=== PATIENT | female | born 1980 | race Caucasian/White ===

== ENCOUNTER 2020-04-23 10:54 | Outpatient (REF) | payer BC, SELFPAY ==
[2020-04-23 11:45] LABS: Hematocrit 42.5 % (37-47); Mean Corpuscular HGB Conc 32.9 g/dl (31.0-35.0); Mean Corpuscular Hemoglobin 27.2 pg (27.0-33.0); Mean Corpuscular Volume 82.7 fL (80-98); Mean Platelet Volume 9.9 fL (9.4-12.3); Platelet Count 235 X10*3/uL (160-400); Red Blood Count 5.14 X10*6/uL (4.20-5.50); Red Cell Distribution Width 13.2 % (11.0-16.0); White Blood Count 9.7 X10*3/uL (4.8-10.8)
[2020-04-23 12:18] LABS: Estimated Average Glucose 105 mg/dL; Hemoglobin A1c % 5.3 %
[2020-04-23 12:25] LABS: Alanine Aminotransferase 15 U/L (0-31); Albumin Level 4.5 g/dL (3.5-5.0); Alkaline Phosphatase 104 U/L (39-117); Anion Gap 11 (12-20); Aspartate Amino Transferase 16 U/L (5-31); Bilirubin Total 0.6 mg/dL (0.0-1.0); Blood Urea Nitrogen 11 mg/dL (9-16); Calcium 8.8 mg/dL (8.4-10.2); Carbon Dioxide 26 mmol/L (22-29); Chloride 105 mmol/L (96-108); Cholesterol 167 mg/dL; Estimated Glomerular Filt Rate > 60; Glucose Fasting 96 mg/dL (60-99); HDL Cholesterol 29 mg/dL; LDL Cholesterol Calculated 93 mg/dl; Potassium 4.2 mmol/L (3.3-5.1); Sodium 138 mmol/L (135-145); Total Protein 7.6 g/dL (6.5-8.0); Triglycerides 226 mg/dL
[2020-04-23 12:30] LABS: TSH reflex Free T4 0.61 uIU/mL (0.32-4.0)
== END 2020-04-23 10:55 | disposition home or self-care (01) ==
LOC: HO.LAB 10:54
PROVIDERS: PCP Physician Assistant; Visit Provider Physician Assistant
DX: I10 Essential (primary) hypertension (principal); Z86.32 Personal history of gestational diabetes; Z13.1 Encounter for screening for diabetes mellitus; Z13.220 Encounter for screening for lipoid disorders; Z13.29 Encounter for screening for other suspected endocrine disorder
CPT/HCPCS: 36415; 80053; 80061; 83036; 84443; 85027

== ENCOUNTER 2020-10-08 09:44 | Outpatient (REF) | payer BC, SELFPAY ==
--- NOTE | ~2020-10-08 | MM_ITS ---
EXAMINATION: MM SCREENING DIGITAL BREAST TOMOSYNTHESIS, BILATERAL CLINICAL INFORMATION: Screening. Asymptomatic. Age 40. No prior breast imaging. Family history breast cancer, maternal grandmother. The lifetime risk of breast cancer based on the Tyrer-Cuzick Model is 21%. COMPARISON: None (current study represents initial baseline exam). TECHNIQUE: Digital breast tomosynthesis is performed in both the craniocaudal and mediolateral oblique views along with computer-aided detection (CAD). Synthesized 2D images are generated from the tomosynthesis. Additional left CC and right MLO views are provided. FINDINGS: There are scattered areas of fibroglandular density (ACR BI-RADS breast composition Category b). There are no significant masses, abnormal calcifications, or other abnormalities. There is incidental intramammary node mid outer left breast and also mid outer right breast on the CC views. The axilla and skin contours are unremarkable. MM/MM tomosynthesis screening BI IMPRESSION: No mammographic evidence of malignancy. ASSESSMENT: BI-RADS 2: Benign RECOMMENDATION: 1. Routine annual mammography screening. 2. The lifetime risk of breast cancer based on the Tyrer-Cuzick Model is 21%. Additional annual adjunct screening with breast MRI may be of benefit in women with a risk score of 20% or greater. This patient's information was entered into a reminder system with a target due date for their next mammogram.
[2020-10-08 12:24] LABS: Anion Gap 13 (12-20); Blood Urea Nitrogen 11 mg/dL (9-16); Calcium 9.4 mg/dL (8.4-10.2); Carbon Dioxide 24 mmol/L (22-29); Chloride 106 mmol/L (96-108); Estimated Glomerular Filt Rate > 60; Glucose Random 95 mg/dL (60-115); Potassium 4.7 mmol/L (3.3-5.1); Rheumatoid Factor < 15.0 IU/mL (<15.0); Sodium 138 mmol/L (135-145)
[2020-10-08 12:42] LABS: Erythrocyte Sedimentation Rate 6 MM/HR (0-20)
[2020-10-10 23:26] LABS: Anti Nuclear Antibody Screen POSITIVE (NEGATIVE)
[2020-10-11 22:11] LABS: Cyclic Citrullinated Peptide <16 UNITS
== END 2020-10-08 09:45 | disposition home or self-care (01) ==
LOC: HO.MAMMO 09:44
PROVIDERS: PCP Physician Assistant; Visit Provider Physician Assistant
DX: Z12.31 Encounter for screening mammogram for malignant neoplasm of breast (principal); I10 Essential (primary) hypertension; M79.641 Pain in right hand; M79.642 Pain in left hand
CPT/HCPCS: 36415; 77063; 77067; 80048; 85652; 86038; 86039; 86200; 86431

== ENCOUNTER 2021-01-29 15:54 | Emergency (ER) | payer BC, SELFPAY ==
--- NOTE | ~2021-01-29 | XR_ITS ---
EXAMINATION: XR CHEST CLINICAL INFORMATION: Cough COMPARISON: None TECHNIQUE: Frontal view of the chest was obtained. FINDINGS: The lungs are clear. The costophrenic sulci are well-defined. The heart is normal in size. Vascularity normal. The hilar and mediastinal contours and visualized bony structures are unremarkable. XR/XR chest 1V IMPRESSION: Unremarkable examination.
[2021-01-29 16:04] VITALS: BP 130/84; PULSE 97; RESP 16; TEMP 36.8; BMI 36.8
[2021-01-29 16:34] LABS: COVID-19 Test Negative (Negative)
--- NOTE | 2021-01-29 17:27 | ED_ITS ---
HPI - URI/Sore Throat General Chief Complaint: Upper Respiratory Symptoms Stated Complaint: cough and watery eye [id number] Time Seen by Provider: 01/29/21 17:27 Source: patient Mode of arrival: ambulatory History of Present Illness HPI Narrative: 40-year-old female with no significant past medical history presenting to the ED complaining of dry cough x3 weeks. Denies fever, chills, ear pain, sore throat, CP, SOB, LE edema, calf pain, recent travel, sick contacts MD elicited complaint: cough Related Data Previous Rx's Medication Instructions Recorded lisinopril 5 mg tablet 5 mg PO DAILY #30 tab 12/16/20 albuterol sulfate 90 mcg/actuation 2 puff INHALATION Q6H PRN #8.5 g 01/28/21 aerosol inhaler naproxen 500 mg tablet 500 mg PO BID PRN 14 Days #28 tab 01/28/21 azithromycin 250 mg tablet See Rx Instructions .ROUTE 01/29/21 .COMPLEX #6 tab benzonatate 200 mg capsule 200 mg PO TID PRN #20 cap 01/29/21 fluticasone propionate 50 2 spray INTRANASAL DAILY #16 g 01/29/21 mcg/actuation nasal spray,suspension (Flonase Allergy Relief) Allergies Allergy/AdvReac Type Severity Reaction Status Date / Time walnut AdvReac swollen Verified 10/02/20 10:59 throat Review of Systems Review of Systems: Constitutional: No Fever, No Chills ENT/Mouth: No Ear Pain, No Nasal Congestion, No sore throat, No Rhinorrhea, No Swallowing Difficulty Cardiovascular: No Chest Pain, No SOB Respiratory: + Cough, No Sputum, No Wheezing Gastrointestinal: No Nausea, No Vomiting, No Diarrhea, No Constipation, No Abdominal pain Genitourinary: No Dysuria, No Urgency, No Flank Pain Musculoskeletal: No joint pain, No Myalgias, No Joint Swelling Skin: No Skin Lesions, No rash Neuro: No Weakness, No Numbness, No Paresthesias Yes all other systems are reviewed and are negative [facility] Past Medical History Attestation statement: The following information was validated with the patient. 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 [employer] Current occupational exposures/hazards: No Physical Exam Vital Signs: Vital Signs: Last Vital Signs Temp 98.2 F 01/29/21 16:04 Pulse 97 01/29/21 16:04 Resp 16 01/29/21 16:04 BP 130/84 01/29/21 16:04 Body Mass Index 36.8 Const: General: cooperative, healthy appearing and no acute distress Orientation/consciousness: patient oriented x3 Limitations: no limitations HENMT: Head: Yes normal to inspection Ears: hearing grossly normal bilaterally, external ears normal, TM's normal bilaterally and mastoids normal General nose exam: Normal external nose present Face and sinus: Yes normal facial exam Mouth: Normal oral and palatal mucosa present Throat: Yes posterior oropharynx normal, Yes tonsils normal, Yes uvula midline, No uvula laterally displaced and No uvular edema Eyes: General: appearance normal, both eyes and all related structures EOM: EOMs intact bilaterally Neck: Neck: Yes normal visual inspection and Yes no meningeal signs Resp: Effort & Inspection: normal respiratory effort Auscultation: clear to auscultation bilaterally, no rales, no rhonchi and no wheezes Cardio: Rate: regular rate Heart sounds: S1 normal heart sound present and S2 normal heart sound present GI: Inspection: Yes normal to inspection Palpation (GI): Soft to palpation, nontender, no guarding and not rigid Skin: Rashes: no rashes Wounds: no wounds Neuro: General: patient oriented x3 and no meningeal signs Gait exam (Neuro): Normal gait present Extrem: General: Yes normal to inspection, Yes no pedal edema and Yes no calf tenderness Course Course Course Narrative: XR chest 1V IMPRESSION: Unremarkable examination. ? -COVID-19 negative MDM - URI/Sore Throat MDM Narrative Medical decision making narrative: 40-year-old female with no significant past medical history presenting to the ED complaining of dry cough x3 weeks. On exam vital signs stable, NAD, well-appearing, lungs CTA, oropharynx/TMs WNL. Concern for viral syndromes COVID-19 versus bronchitis. Rule out pneumonia. Plan: CXR, COVID-19 testing Medical Records Attestation: I reviewed the patient's medical records. Lab Data Attestation: I reviewed the patient's lab results. Labs: Lab Results 01/29/21 Range/Units 16:10 COVID-19 (YAJAIRA) Negative (Negative) COVID-19 Clin Com See Note Discharge Plan Discharge Clinical Impression: Bronchitis Patient Disposition: Home, Self-Care Instructions: Acute Bronchitis (ED) Additional Instructions: you tested negative for COVID-19 Your x-ray was unremarkable You likely have bronchitis, azithromycin as antibiotic, take as prescribed Tessalon Perles for cough Flonase as a nasal decongestant, please follow up with her doctor If her symptom persist or worsen, you have constant or worsening cough/shortness breath, chest pain, or fever unresolved medications please return to the ED Prescriptions: New azithromycin 250 mg tablet See Rx Instructions .ROUTE .COMPLEX Qty: 6 RF: 0 benzonatate 200 mg capsule 200 mg PO TID PRN (Reason: cough) Qty: 20 RF: 0 fluticasone propionate [Flonase Allergy Relief] 50 mcg/actuation spray,suspension 2 spray intranasal DAILY Qty: 16 RF: 0 No Action lisinopril 5 mg tablet 5 mg PO DAILY Qty: 30 RF: 3 albuterol sulfate 90 mcg/actuation HFA aerosol inhaler 2 puff inhalation Q6H PRN (Reason: shortness of breath or wheezing) Qty: 8.5 RF: 1 naproxen 500 mg tablet 500 mg PO BID PRN (Reason: pain) 14 Days Qty: 28 RF: 0 Referrals: Physician,Unknown J [Primary Care Provider] - 2 days
== END 2021-01-29 17:50 | disposition home or self-care (01) ==
PROVIDERS: Emergency Provider Emergency Medicine
DX: J40 Bronchitis, not specified as acute or chronic (principal); Z20.822 Contact with and (suspected) exposure to COVID-19
CPT/HCPCS: 36415; 71045; 87635; 99283

== ENCOUNTER 2021-03-24 13:17 | Outpatient (REF) | payer BC, SELFPAY ==
[2021-03-24 15:21] LABS: Binax Internal Control QC Valid; Binax Now Covid-19 Ag Negative (Negative)
== END 2021-03-24 13:18 | disposition home or self-care (01) ==
LOC: HO.LAB 13:17
PROVIDERS: Visit Provider Internal Medicine
DX: Z20.822 Contact with and (suspected) exposure to COVID-19 (principal)
CPT/HCPCS: 36415; C9803

== ENCOUNTER 2021-07-02 09:23 | Outpatient (REF) | payer OTHER, MEDICAID, SELFPAY ==
[2021-07-05 07:26] LABS: HPV mRNA E6/E7 Not Detected (Not Detected)
== END 2021-07-02 09:24 | disposition home or self-care (01) ==
LOC: HO.LAB 09:23
PROVIDERS: PCP Physician Assistant; Visit Provider Obstetrics & Gynecology
DX: Z01.411 Encounter for gynecological examination (general) (routine) with abnormal findings (principal); Z11.51 Encounter for screening for human papillomavirus (HPV); N94.9 Unspecified condition associated with female genital organs and menstrual cycle
CPT/HCPCS: 87624; 88142

== ENCOUNTER 2021-07-29 10:54 | Outpatient (REF) | payer OTHER, MEDICAID, SELFPAY ==
--- NOTE | ~2021-07-29 | US_ITS ---
EXAMINATION: US PELVIS CLINICAL INFORMATION: Adnexal fullness COMPARISON: None TECHNIQUE: Ultrasound of the pelvis is performed using both transabdominal and transvaginal transducers along with Doppler. Transvaginal imaging is performed due to inadequate visualization transabdominally. FINDINGS: Uterus: The uterus is anteverted and measures 10.8 x 4.6 x 5.2 cm. The double wall endometrial thickness is 6 mm. The uterus is smooth in contour and has normal myometrial echogenicity. No visible fibroid. Cervix unremarkable. Adnexa: Both ovaries are visualized. There is normal color flow to the adnexa. There is no ovarian torsion. There is no pelvic ascites or fluid collection. Right ovary measures 3.3 x 2.0 x 1.3 cm. 4.5 mL volume Left ovary measures 3.7 x 2.1 x 2.4 cm. 9.8 mL volume US/US pelvic and transvaginal IMPRESSION: Normal pelvic ultrasound study.
== END 2021-07-29 10:55 | disposition home or self-care (01) ==
LOC: HO.US 10:54
PROVIDERS: Visit Provider Obstetrics & Gynecology
CPT/HCPCS: 76830; 76856

== ENCOUNTER → 2021-08-12 11:25 | Outpatient (BNVA) | payer OTHER, MEDICAID, SELFPAY | PROVIDERS: Visit Provider Obstetrics & Gynecology | DX: Z13.89 Encounter for screening for other disorder (principal) ==

== ENCOUNTER 2021-08-13 22:06 | Emergency (ER) | payer OTHER, SELFPAY ==
--- NOTE | ~2021-08-13 | XR_ITS ---
EXAMINATION: XR CHEST CLINICAL INFORMATION: Shortness of breath COMPARISON: 01/29/2021 TECHNIQUE: Frontal view of the chest was obtained. FINDINGS: The lungs are mildly hypoinflated. There is heterogeneous opacity towards the left lung base. No right lung consolidation is seen. No evidence of pneumothorax, pleural effusion, or pulmonary edema. The cardiomediastinal contour is unremarkable. No acute osseous findings are seen. XR/XR chest 1V IMPRESSION: Heterogeneous left basilar airspace opacity suspicious for pneumonia. Radiographic followup after treatment/resolution of symptoms is recommended.
--- NOTE | 2021-08-13 22:08 | ECG_ITS ---
Test Reason : SHORTNESS OF BREATH Blood Pressure : / mmHG Vent. Rate : 113 BPM Atrial Rate : 113 BPM P-R Int : 144 ms QRS Dur : 074 ms QT Int : 330 ms P-R-T Axes : 070 000 045 degrees QTc Int : 452 ms Sinus tachycardia Otherwise normal ECG No previous ECGs available Referred By: Generic ED Physician Electronically Signed By:RACHID DUPREE MD
[2021-08-13 22:12] VITALS: BP 149/94; PULSE 116; RESP 20; TEMP 36.6; O2SAT 97; BMI 37.8
[2021-08-13 22:48] VITALS: BP 152/93; PULSE 113; RESP 15; O2SAT 98
[2021-08-13 22:54] LABS: MANUAL DIFF FLAG NO
[2021-08-13 22:55] LABS: Basophils Percent Auto 0.1 % (0-2); Eosinophils Absolute Auto 0.1 X10*3/uL (0.0-0.4); Eosinophils Percent Auto 1.4 % (0-4); Hematocrit 38.4 % (37.0-47.0); Imm Gran Abs Auto 0.02 X10*3/uL (0.00-0.03); Imm Gran Pct Auto 0.3 % (0.0-0.4); Lymphocytes Percent Auto 25.9 % (20-40); Mean Corpuscular HGB Conc 33.9 g/dl (31.0-35.0); Mean Corpuscular Hemoglobin 27.4 pg (27.0-33.0); Mean Platelet Volume 9.7 fL (9.4-12.3); Monocytes Absolute Auto 0.5 X10*3/uL (0.1-1.2); Monocytes Percent Auto 6.2 % (2-11); Neutrophils Absolute Auto 5.1 x10*3/uL (2.0-8.3); Neutrophils Percent Auto 66.1 % (45-73); Platelet Count 194 X10*3/uL (160-400); Red Blood Count 4.74 X10*6/uL (4.20-5.50); Red Cell Distribution Width 13.2 % (11.0-16.0); White Blood Count 7.8 X10*3/uL (4.8-10.8)
--- NOTE | 2021-08-13 23:09 | ED_ITS ---
HPI - General Adult General Chief complaint: Dyspnea Stated complaint: sob, left side lung pain,cough Time Seen by Provider: 08/13/21 23:07 Source: patient and family Mode of arrival: ambulatory Limitations: no limitations History of Present Illness HPI narrative: 40-year-old female came in for evaluation of cough and chest tightness with left-sided chest pain. Symptoms started 3 days ago, reportedly patient's child is sick with croup, patient has been having runny nose and nasal congestion, been coughing non productive cough, pain on the left side of the chest worsening with movement and coughing, improve with sitting still. No fever, no chills. No recent travel, no lower extremity swelling or tenderness, no history of PE or DVT. No no chest wall trauma or injury. Related Data Home Medications Medication Instructions Recorded Confirmed ergocalciferol (vitamin D2) 1,250 1,250 mcg PO QWEEK 07/02/21 mcg (50,000 unit) capsule Previous Rx's Medication Instructions Recorded naproxen 500 mg tablet 500 mg PO BID PRN 14 Days #28 tab 01/28/21 fluticasone propionate 50 2 spray INTRANASAL DAILY #16 g 01/29/21 mcg/actuation nasal spray,suspension (Flonase Allergy Relief) losartan 25 mg tablet 25 mg PO DAILY 30 Days #30 tab 03/20/21 albuterol sulfate 90 mcg/actuation 2 puff INHALATION Q6H PRN #8.5 g 08/01/21 aerosol inhaler albuterol sulfate 90 mcg/actuation 1 inh INHALATION QID PRN #6.7 g 08/14/21 aerosol inhaler azithromycin 250 mg tablet See Rx Instructions .ROUTE 08/14/21 (Zithromax Z-Ernesto) .COMPLEX #6 tab prednisone 20 mg tablet 20 mg PO BID #10 tab 08/14/21 Allergies Allergy/AdvReac Type Severity Reaction Status Date / Time walnut AdvReac swollen Verified 07/02/21 09:50 throat Review of Systems Review of Systems: All other systems are reviewed and are negative Constitutional: Reports as per HPI and Reports no additional constitutional complaints Eyes: Reports as per HPI and Reports no additional eye complaints Reports system reviewed and no additional complaints, except as documented Cardiovascular: Reports as per HPI and Reports no additional cardiovascular complaints Respiratory: Reports as per HPI and Reports no additional respiratory complaints Gastrointestinal: Reports as per HPI and Reports no additional gastrointestinal complaints Genitourinary: Reports no additional female genitourinary complaints Musculoskeletal: Reports no additional musculoskeletal complaints Skin/Breast: Reports system reviewed and no additional complaints, except as docu Psychiatric: Reports no additional psychiatric complaints Endocrine: Reports no additional endocrine complaints Hematologic/Lymphatic: Reports no additional hematologic/lymphatic complaints Allergic/Immunologic: Reports no additional allergic/immunologic complaints Reports system reviewed and no additional complaints, except as documented and Reports Abnormal speech present [facility] Past Medical History Medical History delivery delivered Hypertension Surgical History Hx of section Hx of tubal ligation Family History Family History Father Diabetes Alzheimers disease Mother Arthritis High blood pressure Vertigo Tubular adenoma of colon Paternal Grandmother History of breast cancer Maternal Grandmother History of breast cancer Social History Social History Housing: Apartment Alcohol intake: former Patient Tobacco Use Status: Former Tobacco user e-Cigarette/Vaping Use: Former Use Second Hand Smoke Exposure: No Advance Directives: No Advance Directives Information Provided: No Patient : No service: No Current occupational status: employed 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 Blood pressure normal. Heart rate elevated. Respiration rate normal. Temperature normal. O xygen saturation normal. Appearance: Alert. Oriented X3. No acute distress. Head: Normal external exam. Normocephalic. Atraumatic. No Gunter signs noted. No raccoon eyes noted Eyes: PERRLA. EOMI. Conjunctiva and sclera normal. Eyelids normal. ENT: TM's Normal. Pharynx normal. Uvula midline. Moist mucous membranes. No trismus noted. No drooling noted. No muffled voice noted. Neck: Normal inspection. Neck supple. FROM. No adenopathy. Thyroid Normal. No meningeal signs. No neck mass noted. CVS: Normal heart rate and rhythm. Heart sound normal. No murmurs noted. Pulses normal throughout. Respiratory: No respiratory distress. Painless inspiration. Breath sounds normal. Bilateral mild expiratory wheezing, prolonged expiration, reproducible tenderness on the left chest wall in mid axillary line, no step-off, no deformity, no muscle usage noted or decreased air movement noted. Abdomen: Soft and nontender. Bowel sounds normal in all 4 quadrants. No distention noted. No organomegaly noted. No visible injury noted. Back: No CVA tenderness. Full range of motion noted. Skin: Skin warm and dry. Normal skin color. Normal skin turgor. No rashes/lesions/lacerations noted. Extremities: No lower extremity edema. Extremities exhibit normal range of motion. Extremities nontender. Neuro: Oriented X 3. Cranial nerve exam: II-XII are grossly intact No motor deficit. No sensory deficit. Reflexes normal. Course Course Course Narrative: Assessment and plan. 40 years old female came in with cough and chest wall reproducible pain, no rib fracture, labs are unremarkable, HEART score is 0, low risk for PE with negative D-dimer. Exam is consistent with acute left lower lobe pneumonia will start patient on Z-Ernesto/prednisone/bronchodilator. Medical Decision Making Lab Data Lab results reviewed: Yes I reviewed the patient's lab results. Result diagrams: 08/13/21 22:38 08/13/21 22:38 Labs: Lab Results 08/13/21 08/13/21 08/13/21 Range/Units 22:38 22:38 22:38 WBC 7.8 (4.8-10.8) X10*3/uL RBC 4.74 (4.20-5.50) X10*6/uL Hgb 13.0 (12.0-16.0) g/dl Hct 38.4 (37.0-47.0) % MCV 81.0 (80.0-98.0) fL MCH 27.4 (27.0-33.0) pg MCHC 33.9 (31.0-35.0) g/dl RDW 13.2 (11.0-16.0) % Plt Count 194 (160-400) X10*3/uL MPV 9.7 (9.4-12.3) fL Immature Gran % (Auto) 0.3 (0.0-0.4) % Neut % (Auto) 66.1 (45-73) % Lymph % (Auto) 25.9 (20-40) % [place] % (Auto) 6.2 (2-11) % Eos % (Auto) 1.4 (0-4) % Baso % (Auto) 0.1 (0-2) % Lymph # (Auto) 2.0 (1.2-4.9) X10*3/uL [place] # (Auto) 0.5 (0.1-1.2) X10*3/uL Eos # (Auto) 0.1 (0.0-0.4) X10*3/uL Baso # (Auto) 0.0 (0.0-0.2) X10*3/uL Abs Immat Gran (auto) 0.02 (0.00-0.03) X10*3/uL Absolute Neuts (auto) 5.1 (2.0-8.3) x10*3/uL Absolute Nucleated RBC 0.000 (0.0-0.012) X10*3/uL Nucleated RBC % (auto) 0.0 (0.0-0.2) /100WBC D-Dimer High Sensitivty NG/ML Sodium 135 (135-145) mmol/L Potassium 4.1 (3.3-5.1) mmol/L Chloride 106 (96-108) mmol/L Carbon Dioxide 21 L (22-29) mmol/L Anion Gap 12 (12-20) BUN 11 (9-16) mg/dL Creatinine 0.79 (0.5-1.4) mg/dL Estim Creat Clear Calc 97.1 Estimated GFR > 60 Random Glucose 100 (60-115) mg/dL Calcium 8.8 D (8.4-10.2) mg/dL Total Bilirubin 0.3 (0.0-1.0) mg/dL AST 19 (5-31) U/L ALT 22 (0-31) U/L Alkaline Phosphatase 99 (39-117) U/L Troponin I High Sens < 3.5 (<3.5-17.0) ng/L Total Protein 7.0 (6.5-8.0) g/dL Albumin 3.9 (3.5-5.0) g/dL Influenza Type A (PCR) (Negative) Influenza Type B (PCR) (Negative) RSV RNA Qual (PCR) (Negative) SARS-CoV-2 RNA (RT-PCR) (Negative) 08/13/21 08/13/21 Range/Units 22:38 23:33 WBC (4.8-10.8) X10*3/uL RBC (4.20-5.50) X10*6/uL Hgb (12.0-16.0) g/dl Hct (37.0-47.0) % MCV (80.0-98.0) fL MCH (27.0-33.0) pg MCHC (31.0-35.0) g/dl RDW (11.0-16.0) % Plt Count (160-400) X10*3/uL MPV (9.4-12.3) fL Immature Gran % (Auto) (0.0-0.4) % Neut % (Auto) (45-73) % Lymph % (Auto) (20-40) % [place] % (Auto) (2-11) % Eos % (Auto) (0-4) % Baso % (Auto) (0-2) % Lymph # (Auto) (1.2-4.9) X10*3/uL [place] # (Auto) (0.1-1.2) X10*3/uL Eos # (Auto) (0.0-0.4) X10*3/uL Baso # (Auto) (0.0-0.2) X10*3/uL Abs Immat Gran (auto) (0.00-0.03) X10*3/uL Absolute Neuts (auto) (2.0-8.3) x10*3/uL Absolute Nucleated RBC (0.0-0.012) X10*3/uL Nucleated RBC % (auto) (0.0-0.2) /100WBC D-Dimer High Sensitivty 178 NG/ML Sodium (135-145) mmol/L Potassium (3.3-5.1) mmol/L Chloride (96-108) mmol/L Carbon Dioxide (22-29) mmol/L Anion Gap (12-20) BUN (9-16) mg/dL Creatinine (0.5-1.4) mg/dL Estim Creat Clear Calc Estimated GFR Random Glucose (60-115) mg/dL Calcium (8.4-10.2) mg/dL Total Bilirubin (0.0-1.0) mg/dL AST (5-31) U/L ALT (0-31) U/L Alkaline Phosphatase (39-117) U/L Troponin I High Sens (<3.5-17.0) ng/L Total Protein (6.5-8.0) g/dL Albumin (3.5-5.0) g/dL Influenza Type A (PCR) NEGATIVE (Negative) Influenza Type B (PCR) NEGATIVE (Negative) RSV RNA Qual (PCR) NEGATIVE (Negative) SARS-CoV-2 RNA (RT-PCR) NEGATIVE (Negative) Imaging Data Chest x-ray: Attestation: I personally reviewed and interpreted this imaging study as follows: Radiologist's impression: Heterogeneous left basilar airspace opacity suspicious for pneumonia. Radiographic followup after treatment/resolution of symptoms is recommended. ? ECG Data Attestation: I personally reviewed and interpreted this ECG as follows: Interpretation: Sinus tachycardia at 113 beats per minute, normal intervals, no ST-T changes. Discharge Plan Discharge Clinical Impression: Bronchitis, Chest wall pain, Pneumonia Patient Disposition: Home, Self-Care Instructions: Pneumonia (ED) Prescriptions: New prednisone 20 mg tablet 20 mg PO BID Qty: 10 0RF azithromycin [Zithromax Z-Ernesto] 250 mg tablet See Rx Instructions .ROUTE .COMPLEX Qty: 6 0RF Rx Instructions: For 250 mg dose pack: take 500 mg today (day 1), then 250 mg for 4 days (days 2-5) albuterol sulfate 90 mcg/actuation HFA aerosol inhaler 1 inh inhalation QID PRN (Reason: shortness of breath or wheezing) Qty: 6.7 0RF No Action naproxen 500 mg tablet 500 mg PO BID PRN (Reason: pain) 14 Days Qty: 28 0RF losartan 25 mg tablet 25 mg PO DAILY 30 Days Qty: 30 3RF albuterol sulfate 90 mcg/actuation HFA aerosol inhaler 2 puff inhalation Q6H PRN (Reason: shortness of breath or wheezing) Qty: 8.5 1RF fluticasone propionate [Flonase Allergy Relief] 50 mcg/actuation spray,suspension 2 spray intranasal DAILY Qty: 16 0RF Rx Instructions: administer into each nostril ergocalciferol (vitamin D2) 1,250 mcg (50,000 unit) capsule 1,250 mcg PO QWEEK 0RF Referrals: Cheo Patterson PA-C [Primary Care Provider] -
[2021-08-13 23:12] LABS: Alanine Aminotransferase 22 U/L (0-31); Albumin Level 3.9 g/dL (3.5-5.0); Alkaline Phosphatase 99 U/L (39-117); Anion Gap 12 (12-20); Aspartate Amino Transferase 19 U/L (5-31); Bilirubin Total 0.3 mg/dL (0.0-1.0); Blood Urea Nitrogen 11 mg/dL (9-16); Calcium 8.8 mg/dL (8.4-10.2); Carbon Dioxide 21 mmol/L (22-29); Chloride 106 mmol/L (96-108); Creatinine Clr Calc Pharmacy 97.1; Estimated Glomerular Filt Rate > 60; Glucose Random 100 mg/dL (60-115); Potassium 4.1 mmol/L (3.3-5.1); Sodium 135 mmol/L (135-145)
[2021-08-13 23:17] LABS: Troponin-I High Sensitivity < 3.5 ng/L (<3.5-17.0)
[2021-08-13] MEDS: Albuterol/Iprat 2.5/0.5MG 3 ML AMPUL.NEB INHALE (23:21)
[2021-08-13] MEDS: predniSONE 20 MG TABLET 60 MG PO (23:25)
[2021-08-13 23:31] LABS: Influenza A PCR NEGATIVE (Negative); Influenza B PCR NEGATIVE (Negative); Resp Syncy Virus RNA Qual PCR NEGATIVE (Negative); SARS COV2 PCR INHOUSE NEGATIVE (Negative)
[2021-08-13 23:32] VITALS: PULSE 107; RESP 16; O2SAT 97
[2021-08-13 23:47] LABS: D Dimer High Sensitivity 178 NG/ML
== END 2021-08-14 01:42 | disposition home or self-care (01) ==
PROVIDERS: Emergency Provider Emergency Medicine; PCP Physician Assistant
DX: J18.9 Pneumonia, unspecified organism (principal); J40 Bronchitis, not specified as acute or chronic; R07.89 Other chest pain; I10 Essential (primary) hypertension; Z20.822 Contact with and (suspected) exposure to COVID-19
CPT/HCPCS: 0241U; 36415; 71045; 80053; 84484; 85025; 85379; 93005; 94640; 99284

== ENCOUNTER 2021-08-26 08:43 | Outpatient (REF) | payer OTHER, SELFPAY ==
[2021-08-26 09:28] LABS: Hematocrit 40.7 % (37.0-47.0); Hemoglobin 13.4 g/dl (12.0-16.0); Mean Corpuscular HGB Conc 32.9 g/dl (31.0-35.0); Mean Corpuscular Hemoglobin 27.3 pg (27.0-33.0); Mean Corpuscular Volume 82.9 fL (80.0-98.0); Mean Platelet Volume 9.5 fL (9.4-12.3); Platelet Count 233 X10*3/uL (160-400); Red Blood Count 4.91 X10*6/uL (4.20-5.50); Red Cell Distribution Width 13.2 % (11.0-16.0); White Blood Count 8.6 X10*3/uL (4.8-10.8)
[2021-08-26 09:48] LABS: Alanine Aminotransferase 21 U/L (0-31); Alkaline Phosphatase 88 U/L (39-117); Anion Gap 11 (12-20); Aspartate Amino Transferase 15 U/L (5-31); Blood Urea Nitrogen 14 mg/dL (9-16); Calcium 8.9 mg/dL (8.4-10.2); Carbon Dioxide 24 mmol/L (22-29); Chloride 105 mmol/L (96-108); Cholesterol 171 mg/dL; Estimated Glomerular Filt Rate > 60; Glucose Fasting 111 mg/dL (60-99); HDL Cholesterol 25 mg/dL; LDL Cholesterol Calculated 75 mg/dl; Potassium 4.4 mmol/L (3.3-5.1); Sodium 136 mmol/L (135-145); Total Protein 6.7 g/dL (6.5-8.0); Triglycerides 357 mg/dL
[2021-08-26 09:49] LABS: Estimated Average Glucose 108 mg/dL; Hemoglobin A1c % 5.4 %
[2021-08-26 10:18] LABS: TSH reflex Free T4 0.56 uIU/mL (0.32-4.0)
[2021-08-26 11:30] LABS: Microalbum/Creatinine Ratio Ur 4.1 ug/mg cr
== END 2021-08-26 08:44 | disposition home or self-care (01) ==
LOC: HO.LAB 08:43
PROVIDERS: PCP Physician Assistant; Visit Provider Physician Assistant
DX: I10 Essential (primary) hypertension (principal)
CPT/HCPCS: 36415; 80053; 80061; 82043; 83036; 84443; 85027

== ENCOUNTER 2021-10-10 11:13 | Outpatient (REF) | payer OTHER, SELFPAY ==
--- NOTE | ~2021-10-10 | MM_ITS ---
EXAMINATION: MM SCREENING DIGITAL BREAST TOMOSYNTHESIS, BILATERAL CLINICAL INFORMATION: Screening. Asymptomatic. The lifetime risk of breast cancer based on the Tyrer-Cuzick Model is 21%. COMPARISON: Mammography: 10/08/2020 (baseline) TECHNIQUE: Digital breast tomosynthesis is performed in both the craniocaudal and mediolateral oblique views along with computer-aided detection (CAD). Synthesized 2D images are generated from the tomosynthesis. Additional bilateral MLO views are provided. FINDINGS: There are scattered areas of fibroglandular density (ACR BI-RADS breast composition Category b). There are no significant masses, abnormal calcifications, or other abnormalities. Incidental intramammary nodes again seen bilateral posterior upper outer quadrant. There is no developing density or architectural abnormality. No significant changes from baseline exam. MM/MM tomosynthesis screening BI IMPRESSION: No mammographic evidence of malignancy. ASSESSMENT: BI-RADS 2: Benign RECOMMENDATION: Routine annual mammography screening. This patient's information was entered into a reminder system with a target due date for their next mammogram.
== END 2021-10-10 11:14 | disposition home or self-care (01) ==
LOC: HO.MAMMO 11:13
PROVIDERS: PCP Physician Assistant; Visit Provider Physician Assistant
DX: Z12.31 Encounter for screening mammogram for malignant neoplasm of breast (principal)
CPT/HCPCS: 77063; 77067

== ENCOUNTER 2022-03-27 07:59 | Outpatient (REF) | payer OTHER, SELFPAY ==
--- NOTE | ~2022-03-27 | US_ITS ---
EXAMINATION: US ABDOMEN LIMITED CLINICAL INFORMATION: Right upper quadrant abdominal pain. COMPARISON: None TECHNIQUE: Real-time imaging of the right upper quadrant abdominal viscera. FINDINGS: PANCREAS: Normal. LIVER: Increased echogenicity of the liver parenchyma which is also slightly heterogeneous. The liver is normal in size. The liver contour is normal. No focal hepatic lesion. There is no intrahepatic biliary duct dilatation seen. GALLBLADDER: Negative Rosas's sign. The gallbladder is physiologically distended. Multiple gallbladder calculi some of which are nonmobile and impacted in the neck. No evidence of gallbladder wall thickening or pericholecystic fluid. COMMON BILE DUCT: Normal in caliber measuring 0.5 cm in diameter. RIGHT KIDNEY: Normal. No hydronephrosis. No renal calculi or focal parenchymal lesions. The kidney measures 10.8 cm in maximum dimension. FREE FLUID: None. US/US abdomen limited IMPRESSION: 1. Cholelithiasis, some stones are nonmobile bowel within the neck. There is no significant gallbladder wall thickening or pericholecystic free fluid to suspect acute cholecystitis. Negative Rosas's sign. 2. Increased echogenicity and heterogeneity of the liver parenchyma is nonspecific and could be seen in the setting of hepatocellular disease, hepatic steatosis or cirrhosis.
== END 2022-03-27 08:00 | disposition home or self-care (01) ==
LOC: HO.US 07:59
PROVIDERS: PCP Physician Assistant; Visit Provider Physician Assistant
DX: R10.11 Right upper quadrant pain (principal)
CPT/HCPCS: 76705

== ENCOUNTER 2022-03-31 15:51 | Outpatient (REF) | payer OTHER, SELFPAY | END 2022-03-31 15:52 | disposition home or self-care (01) | LOC: HO.SH 15:51 | PROVIDERS: Visit Provider Physician Assistant | DX: Z01.118 Encounter for examination of ears and hearing with other abnormal findings (principal); H93.293 Other abnormal auditory perceptions, bilateral | CPT/HCPCS: 92557; 92567 ==

== ENCOUNTER 2022-05-27 09:52 | Outpatient (REF) | payer OTHER, SELFPAY ==
[2022-05-27 11:34] LABS: Prothrombin Time 11.5 SEC (10.0-13.1)
[2022-05-27 11:47] LABS: Estimated Average Glucose 111 mg/dL; Hemoglobin A1c % 5.5 %
[2022-05-27 11:56] LABS: Hematocrit 41.7 % (37.0-47.0); Hemoglobin 13.9 g/dl (12.0-16.0); Mean Corpuscular HGB Conc 33.3 g/dl (31.0-35.0); Mean Corpuscular Hemoglobin 27.5 pg (27.0-33.0); Mean Corpuscular Volume 82.4 fL (80.0-98.0); Platelet Count 268 X10*3/uL (160-400); Red Blood Count 5.06 X10*6/uL (4.20-5.50); White Blood Count 7.9 X10*3/uL (4.8-10.8)
[2022-05-27 12:22] LABS: Hepatitis A Antibody IgG Nonreactive (Nonreactive); ~Hepatitis A Antibody IgG 0.35 S/CO (0.00-0.99)
[2022-05-27 12:23] LABS: HBS Num1 0.85 mIU/mL (0-7.99); HBc Num1 0.07 S/CO (0.00-0.79); HBsAGNum1 0.31 S/CO (0.00-0.99); HIV AB/AG Nonreactive (Nonreactive); HIV Num 1 0.05 S/CO (0.00-0.99); Hepatitis B Core Antibody Nonreactive (Nonreactive); Hepatitis B Surface Antigen Negative (Negative); ~Hepatitis B Surface Antibody NONREACTIVE (Nonreactive)
[2022-05-27 12:25] LABS: ~HepC Num1 0.09 S/CO (0.00-0.79); ~Hepatitis C Antibody Nonreactive (Nonreactive)
[2022-05-27 12:30] LABS: Alanine Aminotransferase 24 U/L (0-31); Albumin Level 4.1 g/dL (3.5-5.0); Alkaline Phosphatase 97 U/L (39-117); Anion Gap 14 (12-20); Aspartate Amino Transferase 17 U/L (5-31); Bilirubin Total 0.8 mg/dL (0.0-1.0); Blood Urea Nitrogen 10 mg/dL (9-16); Calcium 9.1 mg/dL (8.4-10.2); Carbon Dioxide 25 mmol/L (22-29); Chloride 106 mmol/L (96-108); Cholesterol 171 mg/dL; Estimated Glomerular Filt Rate > 60; Glucose Random 113 mg/dL (60-115); HDL Cholesterol 25 mg/dL; LDL Cholesterol Calculated 99 mg/dl; Sodium 141 mmol/L (135-145); TSH reflex Free T4 0.74 uIU/mL (0.32-4.0); Total Protein 7.1 g/dL (6.5-8.0); Triglycerides 238 mg/dL
[2022-05-27 12:43] LABS: Creatinine Urine 148.34 mg/dL; Microalbum/Creatinine Ratio Ur 239.3 ug/mg cr
== END 2022-05-27 09:53 | disposition home or self-care (01) ==
LOC: HO.LAB 09:52
PROVIDERS: PCP Physician Assistant; Referring Provider Physician Assistant; Visit Provider Internal Medicine
DX: Z11.4 Encounter for screening for human immunodeficiency virus [HIV] (principal); I10 Essential (primary) hypertension; K74.60 Unspecified cirrhosis of liver; K76.0 Fatty (change of) liver, not elsewhere classified; K80.20 Calculus of gallbladder without cholecystitis without obstruction; K59.09 Other constipation
CPT/HCPCS: 36415; 80053; 80061; 82043; 83036; 84443; 85027; 85610; 86704; 86706; 86708; 86803; 87340; 87389; 99202

== ENCOUNTER → 2022-07-06 09:30 | Outpatient (BNVA) | payer OTHER, SELFPAY | PROVIDERS: PCP Physician Assistant; Visit Provider Obstetrics & Gynecology ==

== ENCOUNTER → 2022-07-28 08:48 | Outpatient (BNVA) | payer OTHER, SELFPAY | PROVIDERS: PCP Physician Assistant; Referring Provider Obstetrics & Gynecology; Visit Provider Surgery | DX: Z91.89 Other specified personal risk factors, not elsewhere classified (principal); Z80.3 Family history of malignant neoplasm of breast | CPT/HCPCS: 99202 ==

== ENCOUNTER 2022-08-03 08:50 | Emergency (ER) | payer OTHER, SELFPAY ==
--- NOTE | ~2022-08-03 | XR_ITS ---
EXAMINATION: XR CHEST CLINICAL INFORMATION: Pain and cough COMPARISON: None available. TECHNIQUE: Frontal view of the chest was obtained. FINDINGS: No significant abnormality is noted involving the heart, lungs, mediastinum, bony thorax or soft tissues. XR/XR chest 1V IMPRESSION: Unremarkable chest examination.
[2022-08-03 09:11] VITALS: BP 154/98; PULSE 83; RESP 18; TEMP 36.8; O2SAT 99; BMI 35.3
--- NOTE | 2022-08-03 09:43 | ED_ITS ---
HPI - General Adult General Chief complaint: General Medical Stated complaint: r sided back pain Time Seen by Provider: 08/03/22 09:43 Source: patient Mode of arrival: ambulatory Limitations: no limitations History of Present Illness HPI narrative: Patient is a 41 year old assigned female at with a history of HTN presenting to the emergency department today with a persistent cough and right sided rib pain. Patient states that over the last 2 weeks she has had a persistent cough and now coughing hurts her right rib cage towards the back. Patient states that the last time this happened, she had pneumonia. Patient denies any dizziness, lightheadedness, abdominal pain, nausea, vomiting, fever, chills, blurry vision, double vision, loss of vision, chest pain, difficulty breathing, shortness of breath, back pain, night sweats, pain with urination, increased urinary frequency, increased urinary urgency, blood in her urine or stool, syncope or a near syncopal episode, recent trauma or falls, bowel inconti nence, bladder incontinence, bowel retention, bladder retention, or any other complaints at this time. Onset (ago): week(s) (2) Severity: mild Severity scale (1-10): 2 Quality: dull Pain Consistency: intermittent Relieving factors: none Exacerbating factors: none Associated symptoms: cough Treatments prior to arrival: none Related Data Home Medications Medication Instructions Recorded Confirmed ergocalciferol (vitamin D2) 1,250 1,250 mcg PO QWEEK 07/02/21 07/28/22 mcg (50,000 unit) capsule sennosides 8.6 mg capsule (senna) 17.2 mg PO BEDTIME 05/27/22 07/28/22 Previous Rx's Medication Instructions Recorded naproxen 500 mg tablet 500 mg PO BID PRN pain 14 days #28 02/16/22 tabs albuterol sulfate 90 mcg/actuation 1 inh inhalation QID PRN shortness 02/17/22 aerosol inhaler (Ventolin HFA) of breath or wheezing 30 days #8.5 grams losartan 25 mg tablet 25 mg PO DAILY 90 days #90 tabs 02/22/22 ursodiol 300 mg capsule 300 mg PO DAILY 30 days #30 caps 05/04/22 polyethylene glycol 3350 17 17 g PO DAILY constipation 30 days 05/27/22 gram/dose oral powder (Miralax) #510 grams ipratropium bromide 42 mcg (0.06 2 spray intranasal BID 30 days #15 06/20/22 %) nasal spray mL albuterol sulfate 90 mcg/actuation 1 inh inhalation QID PRN shortness 08/03/22 aerosol inhaler of breath or wheezing #8.5 grams doxycycline hyclate 100 mg tablet 100 mg PO BID 7 days #14 tabs 08/03/22 Allergies Allergy/AdvReac Type Severity Reaction Status Date / Time walnut AdvReac swollen Verified 07/28/22 08:51 throat Review of Systems Constitutional: Constitutional: Reports no additional constitutional complaints, Denies chills, Denies fever(s) and Denies night sweats Eyes: Eyes: Reports no additional eye complaints, Denies blurry vision, Denies change in vision, Denies diplopia, Denies eye discharge, Denies loss of vision and Denies eye pain ENT: Denies dizziness Cardiovascular: Cardiovascular: Reports no additional cardiovascular complaints, Denies chest pain, Denies lightheadedness, Denies Loss of Consciousness and Denies dyspnea Respiratory: Respiratory: Reports no additional respiratory complaints, Reports cough and Denies dyspnea Gastrointestinal: Gastrointestinal: Reports no additional gastrointestinal complaints, Denies abdominal pain, Denies melena, Denies hematochezia, Denies change in bowel habits and Denies change in stool character Genitourinary: Genitourinary: Denies hematuria, Denies urinary frequency, Denies dysuria, Denies urinary incontinence, Denies urinary hesitancy and Denies urinary urgency Musculoskeletal: Musculoskeletal: Reports no additional musculoskeletal complaints, Denies numbness and Denies tingling Comments: right sided rib pain Neurologic: Denies dizziness, Denies loss of vision, Denies numbness and Denies tingling Psychiatric: Psychiatric: Reports no additional psychiatric complaints Endocrine: Endocrine: Reports no additional endocrine complaints Hematologic/Lymphatic: Hematologic/Lymphatic: Reports no additional hematologic/lymphatic complaints Allergic/Immunologic: Allergic/Immunologic: Reports no additional allergic/immunologic complaints PMFSH Past Medical History Attestation statement: The following information was validated with the patient. Source: old records reviewed and nursing notes reviewed Medical History delivery delivered Hypertension Surgical History Hx of section Hx of tubal ligation Family History Family History Father Diabetes Alzheimers disease Mother Arthritis High blood pressure Vertigo Tubular adenoma of colon Paternal Grandmother History of breast cancer Maternal Grandmother History of breast cancer Social History Social History Housing: Apartment Alcohol intake: former Patient Tobacco Use Status: Former Tobacco user e-Cigarette/Vaping Use: Former Use Second Hand Smoke Exposure: No Advance Directives: No Advance Directives Information Provided: Yes service: No Current occupational status: unemployed Current occupation: stay at home Current occupational exposures/hazards: No Sexual orientation: Straight/Heterosexual Gender identity: Female Cognitive needs: No Hearing needs: No Vision needs: Yes Physical Exam ED Vital Signs: Vital Signs - 24 hr 08/03/22 09:11 Temperature 98.2 F Pulse Rate 83 Respiratory Rate 18 Blood Pressure 154/98 H Pulse Oximetry 99 Oxygen Delivery Method Room Air BMI result Body Mass Index 35.3 Const General: cooperative, no acute distress, alert and awake Nutritional Appearance: well nourished Orientation/consciousness: patient oriented x3 Limitations: no limitations HENMT Head: Yes normal to inspection and Yes atraumatic Ears: hearing grossly normal bilaterally and external ears normal General nose exam: Normal external nose present, no nasal discharge noted and no epistaxis Face and sinus: Yes normal facial exam, No abrasion and No laceration Mouth: Normal oral and palatal mucosa present, no drooling and no muffled voice Eyes General: appearance normal, both eyes and all related structures Periorbital: periorbital findings normal Eyelids: Yes eyelids normal Conjunctivae: conjunctivae normal Pupils: Equal, round and reactive pupils present EOM: EOMs intact bilaterally Neck Neck: Yes normal visual inspection, Yes full ROM and Yes no lymphadenopathy Chest Chest palpation & inspection: normal inspection of the chest Resp Effort & Inspection: normal respiratory effort and able to speak in complete sentences Auscultation: clear to auscultation bilaterally Cardio Rate: regular rate Rhythm: regular rhythm GI Inspection: Yes normal to inspection Palpation (GI): Soft to palpation, not firm, nontender, no guarding and not rigid Neuro General: patient oriented x3 and moves all extremities Cranial nerves: Yes Equal, round and reactive pupils present Cognition (Neuro): normal cognition Motor exam (neuro): 5/5 motor strength present throughout Sensory Exam: Normal double simultaneous stimulation for sensation Coordination: [id number] test normal Extrem General: Yes normal to inspection, Yes full ROM and Yes capillary refill normal Psych Appearance: grossly normal Mental Status: mental status grossly normal Affect: normal affect Attitude: cooperative Thought process: Normal thought process present Thought content: Normal thought content present Insight: Good insight present (Psych) Medical Decision Making Medical Decision Making MDM Narrative: Patient is a 41 year old assigned female at with a history of HTN presenting to the emergency department today with right sided rib pain and a cough. Patient's physical exam was unremarkable. Patient's chest x-ray showed no acute process. I explained my physical exam findings as well as all test results to the patient. I answered all questions asked by the patient. I stressed the importance of the patient taking her medication as prescribed. I stressed the importance of the patient following up with her primary care provider. I stressed the importance of the patient returning to the emergency department immediately if her symptoms were to worsen or if she were to develop any dizziness, shortness of breath, difficulty breathing, chest pain, blurry vision, loss of vision, nausea, vomiting, abdominal pain, fever, chills, back pain, or any other complaints. Patient verbalized agreement and understanding with this treatment plan and discharge. Differential Diagnosis Differential Diagnoses: The differential diagnosis associated with the presentation includes chest wall pain, cough, URI Independent Interpretation I performed an independent interpretation of an: Plain X-Ray Interpretation: My interpretation is in agreement with the radiologist's impression of this imaging study. EXAMINATION: XR CHEST CLINICAL INFORMATION: Pain and cough COMPARISON: None available. TECHNIQUE: Frontal view of the chest was obtained. FINDINGS: No significant abnormality is noted involving the heart, lungs, mediastinum, bony thorax or soft tissues. XR/XR chest 1V IMPRESSION: Unremarkable chest examination. Dictated By: Joel Wolfe MD Signed By: Electronically signed by Joel Wolfe MD 08/03/22 1012 Discharge Plan Discharge Clinical Impression: Upper respiratory infection Patient Disposition: Home, Self-Care Instructions: Upper Respiratory Infection (DC) Additional Instructions: Follow up with your primary care provider. Return to the emergency department immediately if your symptoms worsen or if you develop any dizziness, shortness of breath, difficulty breathing, chest pain, blurry vision, loss of vision, naus ea, vomiting, abdominal pain, fever, chills, back pain, or any other complaints. Prescriptions: New doxycycline hyclate 100 mg tablet 100 mg PO BID 7 Days Qty: 14 0RF albuterol sulfate 90 mcg/actuation HFA aerosol inhaler 1 inh inhalation QID PRN (Reason: shortness of breath or wheezing) Qty: 8.5 0RF No Action albuterol sulfate [Ventolin HFA] 90 mcg/actuation HFA aerosol inhaler 1 inh inhalation QID PRN (Reason: shortness of breath or wheezing) 30 Days Qty: 8.5 3RF losartan 25 mg tablet 25 mg PO DAILY 90 Days Qty: 90 1RF ursodiol 300 mg capsule 300 mg PO DAILY 30 Days Qty: 30 2RF ipratropium bromide 42 mcg (0.06 %) spray,non-aerosol 2 spray intranasal BID 30 Days Qty: 15 3RF Rx Instructions: administer into each nostril naproxen 500 mg tablet 500 mg PO BID PRN (Reason: pain) 14 Days Qty: 28 0RF ergocalciferol (vitamin D2) 1,250 mcg (50,000 unit) capsule 1,250 mcg PO QWEEK senna 8.6 mg capsule 17.2 mg PO BEDTIME polyethylene glycol 3350 [Miralax] 17 gram/dose powder 17 g PO DAILY 30 Days Qty: 510 0RF Rx Instructions: Take every day for constipation. Can skip dose if BMs loose. Referrals: Cheo Patterson PA-C [Primary Care Provider] - Interventions: ED Discharge Assessment Last Done: 08/03/22 10:18 Discharge Date/Time: 08/03/22 10:19 Print Language: Bermudian
== END 2022-08-03 10:19 | disposition home or self-care (01) ==
PROVIDERS: Emergency Provider Emergency Medicine; PCP Physician Assistant
DX: J06.9 Acute upper respiratory infection, unspecified (principal); I10 Essential (primary) hypertension; Z87.891 Personal history of nicotine dependence; Z79.899 Other long term (current) drug therapy
CPT/HCPCS: 71045; 99282; 99283

== ENCOUNTER 2022-08-04 11:49 | Outpatient (REF) | payer OTHER, SELFPAY ==
--- NOTE | ~2022-08-04 | MR_ITS ---
EXAMINATION: MR BREAST WITHOUT AND WITH CONTRAST, BILATERAL CLINICAL INFORMATION: High-risk screening. Lifetime risk greater than 20%. Maternal and paternal grandmothers with breast cancer. COMPARISON: Mammography 10/10/2021 and 10/08/2020. TECHNIQUE: Imaging was performed with a dedicated breast coil. Prior to the administration of contrast, bilateral axial T1 and bilateral axial T2 weighted sequences were obtained. After the uneventful administration of?9 mL of Gadavist, dynamic contrast-enhanced VIBRANT series through the breasts in the axial plane were performed. Subtracted images were performed and reviewed. A delayed sagittal sequence through both breasts was acquired. Additionally, CAD post-processing, including maximum intensity projections, 3-D reconstructions and kinetic analysis, were performed an independent workstation and reviewed by the interpreting radiologist is a portion of this exam. FINDINGS: The breasts are comprised of scattered fibroglandular elements. The tissue undergoes mild background enhancement. LEFT BREAST: A 9 mm mass at 2:00 (series 100 image 26/106), 12 cm from the nipple. Lesion is T2 bright with type II plateau enhancement kinetics. Mass is reniform with a recognizable fatty hilum, adjacent a vessel and consistent with an intramammary node. Stable mammographic correlate noted on recent mammography. No suspicious mass, dominant nonmass enhancement or architectural distortion. RIGHT BREAST: There is a similar 8mm right breast mass at 10:00 (series 100 image 51/106) 10 cm the nipple. Mass is reniform with a recognizable fatty hilum, T2 bright and shows primarily type II plateau enhancement kinetics. A mammographic correlate has the appearance of an intramammary node. No suspicious right breast mass, dominant nonmass enhancement or architectural distortion. No additional findings on T2-weighted sequences, kinetic analysis or volume renderings. There is no suspicious internal mammary chain or axillary adenopathy. Limited views of the chest and abdomen are unremarkable. MR/MR breast BI wo/w con IMPRESSION: No MR specific evidence of malignancy. Bilateral intramammary nodes. ASSESSMENT: LEFT BREAST: BI-RADS 2, benign findings. RIGHT BREAST: BI-RADS 2, benign findings. RECOMMENDATIONS: Yearly bilateral breast MRI per published guidelines in high-risk patients. Yearly bilateral screening mammography.
== END 2022-08-04 11:50 | disposition home or self-care (01) ==
LOC: HO.MRI 11:49
PROVIDERS: PCP Physician Assistant; Visit Provider Obstetrics & Gynecology
DX: Z12.39 Encounter for other screening for malignant neoplasm of breast (principal); Z91.89 Other specified personal risk factors, not elsewhere classified
CPT/HCPCS: 77049; A9585

== ENCOUNTER → 2022-08-05 10:23 | Outpatient (BNVA) | payer OTHER, SELFPAY | PROVIDERS: PCP Physician Assistant; Referring Provider Physician Assistant; Visit Provider Surgery ==

== ENCOUNTER 2022-08-20 08:48 | Outpatient (REF) | payer OTHER, SELFPAY ==
--- NOTE | ~2022-08-20 | XR_ITS ---
EXAMINATION: XR CHEST CLINICAL INFORMATION: Asthma COMPARISON: Previous chest x-ray most recent July 2022 TECHNIQUE: 2 views of the chest were obtained. FINDINGS: No significant abnormality is noted involving the heart, lungs, mediastinum, bony thorax or soft tissues. XR/XR chest 2V IMPRESSION: Unremarkable examination.
[2022-08-20 10:20] LABS: Alanine Aminotransferase 17 U/L (0-31); Albumin Level 3.9 g/dL (3.5-5.0); Alkaline Phosphatase 91 U/L (39-117); Anion Gap 10 (12-20); Aspartate Amino Transferase 14 U/L (5-31); Bilirubin Total 0.7 mg/dL (0.0-1.0); Blood Urea Nitrogen 12 mg/dL (9-16); Calcium 8.9 mg/dL (8.4-10.2); Carbon Dioxide 25 mmol/L (22-29); Chloride 107 mmol/L (96-108); Cholesterol 163 mg/dL; Estimated Glomerular Filt Rate > 60; Glucose Fasting 97 mg/dL (60-99); HDL Cholesterol 26 mg/dL; LDL Cholesterol Calculated 91 mg/dl; Potassium 4.2 mmol/L (3.3-5.1); Sodium 138 mmol/L (135-145); Total Protein 6.8 g/dL (6.5-8.0); Triglycerides 231 mg/dL
[2022-08-20 10:20] LABS: Microalbum/Creatinine Ratio Ur 4.9 ug/mg cr
[2022-08-20 10:26] LABS: TSH reflex Free T4 1.01 uIU/mL (0.32-4.0)
== END 2022-08-20 08:49 | disposition home or self-care (01) ==
LOC: HO.XRAY 08:48
PROVIDERS: PCP Physician Assistant; Visit Provider Physician Assistant
DX: I10 Essential (primary) hypertension (principal); R80.9 Proteinuria, unspecified; J45.909 Unspecified asthma, uncomplicated
CPT/HCPCS: 36415; 71046; 80053; 80061; 82043; 84443

== ENCOUNTER → 2022-08-26 09:26 | Outpatient (BNVA) | payer OTHER, SELFPAY | PROVIDERS: PCP Physician Assistant; Visit Provider Internal Medicine | DX: K76.0 Fatty (change of) liver, not elsewhere classified (principal); K80.20 Calculus of gallbladder without cholecystitis without obstruction; K59.09 Other constipation; E66.09 Other obesity due to excess calories; Z68.35 Body mass index [BMI] 35.0-35.9, adult | CPT/HCPCS: 99212 ==

== ENCOUNTER → 2022-09-17 09:22 | Outpatient (BNVA) | payer OTHER, SELFPAY | PROVIDERS: PCP Physician Assistant; Visit Provider Surgery | DX: Z80.3 Family history of malignant neoplasm of breast (principal); Z91.89 Other specified personal risk factors, not elsewhere classified | CPT/HCPCS: 99212 ==

== ENCOUNTER 2022-10-14 09:39 | Outpatient (REF) | payer OTHER, SELFPAY ==
--- NOTE | ~2022-10-14 | MM_ITS ---
EXAMINATION: MM SCREENING DIGITAL BREAST TOMOSYNTHESIS, BILATERAL CLINICAL INFORMATION: Screening. Asymptomatic. The lifetime risk of breast cancer based on the Tyrer-Cuzick Model is 15.9%. COMPARISON: Mammography: This study is compared with prior exams dating back to 2020. TECHNIQUE: Digital breast tomosynthesis is performed in both the craniocaudal and mediolateral oblique views along with computer-aided detection (CAD). Synthesized 2D images are generated from the tomosynthesis. FINDINGS: There are scattered areas of fibroglandular density (ACR BI-RADS breast composition Category b). There are no significant masses, abnormal calcifications, or other abnormalities. MM/MM tomosynthesis screening BI IMPRESSION: No mammographic evidence of malignancy. ASSESSMENT: BI-RADS BI-RADS 1 - Negative RECOMMENDATION: Routine annual mammography screening. 1 year F/U This examination should not preclude the clinical evaluation of a suspicious palpable abnormality. This patient's information was entered into a reminder system with a target due date for their next mammogram.
== END 2022-10-14 09:40 | disposition home or self-care (01) ==
LOC: HO.MAMMO 09:39
PROVIDERS: PCP Physician Assistant; Visit Provider Surgery
DX: Z12.31 Encounter for screening mammogram for malignant neoplasm of breast (principal)
CPT/HCPCS: 77063; 77067

== ENCOUNTER → 2022-10-14 09:45 | Outpatient (BNV) | payer OTHER, SELFPAY | PROVIDERS: PCP Physician Assistant; Visit Provider Radiology Diagnostic Radiology | DX: Z12.31 Encounter for screening mammogram for malignant neoplasm of breast (principal) | CPT/HCPCS: 77063; 77067 ==

== ENCOUNTER 2023-01-26 15:25 | Outpatient (AMB) | payer OTHER, SELFPAY ==
--- NOTE | 2023-01-26 15:28 | MHC.OFFVIS ---
Intake Vital Signs 01/26/23 15:32 Height 5 ft 1 in Weight 190 lb 0.615 oz BMI 35.9 BP 112/78 Blood Pressure Location Lt brachial Position Sitting Intake Visit Reasons: 6 mth follow up breast exam - high risk Intake Note: Patient is seen in office for 6 month follow up visit, breast exam. Patient c/o: denies any concerns or changes since last visit mm: 10/14/22 Contact Lens Manufacturer Required: No Block Cleaner: Block Cleaner Present Accompanied by: Self / Same As Patient Allergies walnut Adverse Reaction (Verified 01/26/23 15:28) swollen throat Medication List - Last Reconciled 01/26/23 by Demetrius Dowd MD albuterol sulfate 90 mcg/actuation 1 inh inhalation QID PRN ergocalciferol (vitamin D2) 1,250 mcg PO QWEEK imiquimod 3.75% 1 packet topical BEDTIME 28 days ipratropium bromide 2 sprays intranasal BID 30 days losartan 25 mg PO DAILY 90 days montelukast (Singulair) 10 mg PO DAILY 90 days naproxen 500 mg PO BID PRN 14 days polyethylene glycol 3350 (Miralax) 17 grams PO DAILY 30 days sennosides (senna) 17.2 mg PO BEDTIME ursodiol 300 mg PO DAILY 30 days HPI HPI Comments History of Present Illness Details 42-year-old female patient determined to be at high risk for breast cancer due to a maternal grandmother and paternal grandmother with breast cancer. She underwent genetic testing on 08/05/2022 and returns today to review the genetic testing results. She continues to deny any ongoing breast symptoms including pain, redness, nipple discharge, palpable mass or enlarged lymph nodes. Her previous mammogram of 10/14/2022 revealed no mammographic evidence of malignancy (BI-RADS 1). Her Tyrer-Cuzick remaining lifetime risk of breast cancer was previously calculated at 21 % placing her at high risk for breast cancer. Breast MRI performed on 08/04/2022 revealed no MR specific evidence of malignancy (BI-RADS 2 bilaterally). Genetic testing results revealed no clinically significant mutations identified. Her breast cancer risk score was calculated at 19.4 %. No variance of uncertain significance were identified as well. She denies any new breast symptoms in either breast. [facility] Medical History Hypertension delivery delivered Surgical History Hx of tubal ligation Hx of section Family History Father Diabetes Alzheimers disease Mother Arthritis High blood pressure Vertigo Tubular adenoma of colon Paternal Grandmother History of breast cancer Maternal Grandmother History of breast cancer Social History Housing: Apartment Alcohol intake: former Patient Tobacco Use Status: Former Tobacco user e-Cigarette/Vaping Use: Former Use Second Hand Smoke Exposure: No service: No Current occupational status: unemployed Current occupation: stay at home Current occupational exposures/hazards: No Sexual orientation: Straight/Heterosexual Gender identity: Female Cognitive needs: No Hearing needs: No Vision needs: Yes Female Reproductive History Menstrual Age of Menarche: 11 Date of Mammogram: 10/14/22 Review of Systems Const All systems reviewed & are unremarkable except as noted in HPI and below Physical Exam Vital Signs: Last Vital Signs BP 112/78 01/26/23 15:32 BMI result Body Mass Index 35.9 Const General: no acute distress Nutritional Appearance: well nourished Orientation/consciousness: patient oriented x3 Limitations: no limitations Chest Other: Left breast: No skin change, no nipple retraction, no nipple discharge, no palpable mass, no enlarged lymph nodes. Right breast: No skin change, no nipple retraction, no nipple discharge, no palpable mass, no enlarged lymph nodes Skin Other: Warm, dry, no rash Neuro General: patient oriented x3 Extrem Other: No edema Assessment & Plan Assessment & Plan (1) Family history of breast cancer: Code(s): Z80.3 - Family history of malignant neoplasm of breast (2) At high risk for breast cancer: Code(s): Z91.89 - Other specified personal risk factors, not elsewhere classified Plan 42-year-old female patient determined to be at high wrist for breast cancer due to family history. Her most recent breast MRI of 08/04/2022 revealed no MR specific evidence of malignancy (BI-RADS 2). Genetic testing was negative for any known genetic defects. Mammogram dated 10/14/2022 revealed no mammographic evidence of malignancy (BI-RADS 1). Examination today revealed no suspicious findings in either breast and no enlarged lymph nodes. I recommended a yearly MRI to be obtained in July 2023 and mammogram in October 2023. She should follow up in 6 months, following the breast MRI. She is welcome to call sooner new breast complaints. Orders: Orders breast BI wo/w con 08/05/23 Z80.3 - Family history of malignant neoplasm of breast, Z91.89 - Other specified personal risk factors, not elsewhere classified Coding Level of Care Code Est Pt Level 3 (56529) Diagnoses Family history of breast cancer Z80.3 At high risk for breast cancer Z91.89
[2023-01-26 15:32] VITALS: BP 112/78; BMI 35.9
== END 2023-01-26 15:45 | disposition home or self-care (01) ==
PROVIDERS: PCP Physician Assistant; Visit Provider Surgery
DX: Z80.3 Family history of malignant neoplasm of breast (principal); Z91.89 Other specified personal risk factors, not elsewhere classified
CPT/HCPCS: 99213

== ENCOUNTER → 2023-01-26 15:25 | Outpatient (BNVA) | payer OTHER, SELFPAY | PROVIDERS: PCP Physician Assistant; Visit Provider Surgery | DX: Z91.89 Other specified personal risk factors, not elsewhere classified (principal); Z80.3 Family history of malignant neoplasm of breast | CPT/HCPCS: 99212 ==

== ENCOUNTER 2023-01-27 15:43 | Outpatient (AMB) | payer OTHER, SELFPAY ==
--- NOTE | 2023-01-27 16:11 | MHC.OFFVIS ---
Intake Intake Visit Reasons: 6 month fu Intake Note: Adrianna presents as a 6 month follow up video call. CC: She is not having any concerns today. Allergies walnut Adverse Reaction (Verified 01/27/23 16:11) swollen throat HPI HPI Comments History of Present Illness Details This is a 41-year-old female past medical history of obesity, gestational diabetes, constipation, who presents to the office for follow up for fatty liver. 05/27/22: Patient currently only reports constipation, bowel movement frequency is 1-2 per week with considerable straining. Otherwise, no abdominal pain, nausea, vomiting, diarrhea, pruritus, abdominal distension. No family history of liver disease. Drinks only socially. No prior history of IV drug use. No recent history of [id number] supplements. She had an ultrasound abdomen done to workup cholelithiasis which also showed steatosis of the liver which prompted this consultation. 08/26/22: Reports improvement in constipation since starting fiber and probiotics. Has not had to reach that frequently for miralax. Has not had a chance to discuss CCY with her surgeon or her PCP. Continues to take Pilar. Labs again reveiwed with the pt. Fib-4 0.52. 01/27/23: Here as a televisit. Has no active gastrointestinal complaints at this time. Visit as set up to review LFTs and known fatty liver. [facility] Medical History Hypertension delivery delivered Surgical History Hx of tubal ligation Hx of section Family History Father Diabetes Alzheimers disease Mother Arthritis High blood pressure Vertigo Tubular adenoma of colon Paternal Grandmother History of breast cancer Maternal Grandmother History of breast cancer Social History Housing: Apartment Alcohol intake: former Patient Tobacco Use Status: Former Tobacco user e-Cigarette/Vaping Use: Former Use Second Hand Smoke Exposure: No service: No Current occupational status: unemployed Current occupation: stay at home Current occupational exposures/hazards: No Sexual orientation: Straight/Heterosexual Gender identity: Female Cognitive needs: No Hearing needs: No Vision needs: Yes Female Reproductive History Menstrual Age of Menarche: 11 Review of Systems Const All systems reviewed & are unremarkable except as noted in HPI and below Assessment & Plan Assessment & Plan (1) Obese: Code(s): E66.9 - Obesity, unspecified Qualifiers: Body mass index: BMI 35.0-35.9 Obesity classification: adult class 2 (BMI 35 - 39.9) Obesity type: due to excess calories Serious obesity comorbidity presence: without serious comorbidity Qualified Code(s): E66.09 - Other obesity due to excess calories; Z68.35 - Body mass index [BMI] 35.0-35.9, adult (2) Hepatic steatosis: Code(s): K76.0 - Fatty (change of) liver, not elsewhere classified Plan: Based on history, labs and imaging most likely due to nonalcoholic fatty liver. Fib 4 is low which argues against advanced fibrosis. Essentially unchanged recommendations from last visit. Patient was not able to lose much weight in fact gained a few months since she was last seen. Plan: -weight loss of 10% total body weight recommended in the next 6 months -Recheck CBC, LFTs, INR, as well as lipid profile and A1c for metabolic risk factors -Will be discharged back to PCP's care as does not have advanced liver disease at this time, with recommendation for monitoring LFTs periodically. (3) Gallstones: Code(s): K80.20 - Calculus of gallbladder without cholecystitis without obstruction Plan: Patient has hx of symptomatic cholelithiasis and also had an admission in the hospital almost 4 years ago for biliary colic, however at that time because she was , surgery was not recommended and she was given Ursodiol. Since then, she did not follow with surgery, and actually still remains on ursodiol. Reviewed with the patient that limited utility of Ursodiol, now that she is able to undergo a cholecystectomy if needed. US shows impacted stones in the GB neck. At last visit, was recommended to follow with Dr Pack (who she sees anyway for breast cancer risk) but has not gotten around to do so. Orders: Orders Complete Blood Count no Diff 01/27/23 K76.0 - Fatty (change of) liver, not elsewhere classified Prothrombin Time INR 01/27/23 K76.0 - Fatty (change of) liver, not elsewhere classified Lipid Panel 01/27/23 K76.0 - Fatty (change of) liver, not elsewhere classified Comprehensive Met. Panel 01/27/23 K76.0 - Fatty (change of) liver, not elsewhere classified Hemoglobin A1c 01/27/23 K76.0 - Fatty (change of) liver, not elsewhere classified Coding Level of Care Code Tele Est Pt Level 3 (43862) Diagnoses Class 2 obesity due to excess calories without serious comorbidity with body mass index (BMI) of 35.0 to 35.9 in adult E66.09; Z68.35 Body mass index: BMI 35.0-35.9 Obesity classification: adult class 2 (BMI 35 - 39.9) Obesity type: due to excess calories Serious obesity comorbidity presence: without serious comorbidity Hepatic steatosis K76.0 Gallstones K80.20
== END 2023-01-27 16:46 | disposition home or self-care (01) ==
LOC: HO.HGI 15:45
PROVIDERS: PCP Physician Assistant; Visit Provider Internal Medicine
DX: E66.09 Other obesity due to excess calories (principal); Z68.35 Body mass index [BMI] 35.0-35.9, adult; K76.0 Fatty (change of) liver, not elsewhere classified; K80.20 Calculus of gallbladder without cholecystitis without obstruction
CPT/HCPCS: 99213

== ENCOUNTER → 2023-01-27 15:43 | Outpatient (BNVA) | payer OTHER, SELFPAY | PROVIDERS: PCP Physician Assistant; Visit Provider Internal Medicine ==

== ENCOUNTER 2023-08-17 21:39 | Emergency (ER) | payer OTHER, SELFPAY ==
--- NOTE | 2023-08-17 | ECG_ITS ---
Test Reason : CHEST DISCOMFORT Blood Pressure : / mmHG Vent. Rate : 102 BPM Atrial Rate : 102 BPM P-R Int : 144 ms QRS Dur : 078 ms QT Int : 348 ms P-R-T Axes : 059 -02 040 degrees QTc Int : 453 ms Sinus tachycardia Otherwise normal ECG When compared with ECG of 13-AUG-2021 22:10, No significant change was found Referred By: Generic ED Physician Electronically Signed By:RACHID DUPREE MD
--- NOTE | ~2023-08-17 | XR_ITS ---
EXAMINATION: XR CHEST CLINICAL INFORMATION: Cough. History of pneumonia. COMPARISON: Previous chest x-ray most recent August 2022 TECHNIQUE: 2 views of the chest were obtained. FINDINGS: The cardiac and mediastinal contours are normal. There is bronchial wall thickening and increased attenuation in the right upper lobe suggestive of bronchopneumonia. Lungs otherwise clear. No pleural effusion or pneumothorax. Bony structures unremarkable. XR/XR chest 2V IMPRESSION: Bronchial wall thickening and increased attenuation in the right upper lobe suggestive of bronchopneumonia. Follow-up chest x-ray following treatment recommended.
[2023-08-17 21:41] VITALS: BP 156/90; PULSE 107; RESP 20; TEMP 36.9; O2SAT 98; BMI 36.4
[2023-08-17 22:01] LABS: MANUAL DIFF FLAG NO
[2023-08-17 22:05] LABS: Basophils Absolute Auto 0.1 X10*3/uL (0.0-0.2); Basophils Percent Auto 0.5 % (0-2); Eosinophils Absolute Auto 0.3 X10*3/uL (0.0-0.4); Hematocrit 37.1 % (37.0-47.0); Imm Gran Abs Auto 0.04 X10*3/uL (0.00-0.03); Imm Gran Pct Auto 0.3 % (0.0-0.4); Lymphocytes Absolute Auto 2.8 X10*3/uL (1.2-4.9); Lymphocytes Percent Auto 22.6 % (20-40); Mean Corpuscular Hemoglobin 28.3 pg (27.0-33.0); Mean Corpuscular Volume 80.8 fL (80.0-98.0); Mean Platelet Volume 9.2 fL (9.4-12.3); Monocytes Absolute Auto 0.8 X10*3/uL (0.1-1.2); Monocytes Percent Auto 6.5 % (2-11); Neutrophils Absolute Auto 8.5 x10*3/uL (2.0-8.3); Neutrophils Percent Auto 68.1 % (45-73); Platelet Count 259 X10*3/uL (160-400); Red Blood Count 4.59 X10*6/uL (4.20-5.50); Red Cell Distribution Width 12.7 % (11.0-16.0); White Blood Count 12.5 X10*3/uL (4.8-10.8)
[2023-08-17 22:20] LABS: COVID-19 Test Negative (Negative); IDNOW Serial# 6674DD1D
[2023-08-17 22:25] LABS: IDNOW Serial# 08D9AD1C
[2023-08-17 22:26] LABS: Strep A Nucleic Acid Negative (Negative)
[2023-08-17 22:32] LABS: IDNOW Serial# 152EDE1D; Influenza A Negative (Negative); Influenza B2 Negative (Negative)
[2023-08-17 23:22] LABS: Anion Gap 15 (12-20)
[2023-08-17 23:25] LABS: Blood Urea Nitrogen 8 mg/dL (9-16); Calcium 9.2 mg/dL (8.4-10.2); Carbon Dioxide 21 mmol/L (22-29); Chloride 106 mmol/L (96-108); Creatinine Clr Calc Pharmacy 96.9; Estimated Glomerular Filt Rate > 60; Glucose Random 111 mg/dL (60-115); Potassium 3.7 mmol/L (3.3-5.1); Sodium 138 mmol/L (135-145)
[2023-08-17 23:53] VITALS: BP 141/88; PULSE 83; RESP 16; TEMP 36.7; O2SAT 96
--- NOTE | 2023-08-18 00:51 | ED_ITS ---
HPI - General Adult General Chief complaint: Upper Respiratory Symptoms Stated complaint: cough, chest discomfort, hx of pneumonia Time Seen by Provider: 08/18/23 00:40 Source: patient, RN notes reviewed and old records reviewed Mode of arrival: ambulatory Limitations: no limitations History of Present Illness ED Provider: Layo HPI narrative: 42-year-old female presents for evaluation of cough, shortness of breath for 4 days She reports a history of pneumonia and asthma. She has been using her inhaler with some relief. She states this reminds her when she has had pneumonia in the past She reports a temperature of 100? prior to arrival but she took ibuprofen Denies any chest pain back pain. She has no other complaints or concerns at this time Related Data Home Medications ?Medication ?Instructions ?Recorded ?Confirmed ergocalciferol (vitamin D2) 1,250 1,250 mcg PO QWEEK 07/02/21 01/26/23 mcg (50,000 unit) capsule sennosides 8.6 mg capsule (senna) 17.2 mg PO BEDTIME 05/27/22 01/26/23 Previous Rx's ?Medication ?Instructions ?Recorded naproxen 500 mg tablet 500 mg PO BID PRN pain 14 days #28 02/16/22 tabs polyethylene glycol 3350 17 17 g PO DAILY constipation 30 days 05/27/22 gram/dose oral powder (Miralax) #510 grams ipratropium bromide 42 mcg (0.06 2 spray intranasal BID 30 days #15 06/20/22 %) nasal spray mL albuterol sulfate 90 mcg/actuation 1 inh inhalation QID PRN shortness 08/03/22 aerosol inhaler of breath or wheezing #8.5 grams ursodiol 300 mg capsule 300 mg PO DAILY 30 days #30 caps 11/04/22 montelukast 10 mg tablet 10 mg PO DAILY 90 days #90 tabs 03/02/23 (Singulair) azithromycin 250 mg tablet See Rx Instructions PO .COMPLEX #6 04/21/23 tabs losartan 25 mg tablet 25 mg PO DAILY 90 days #90 tabs 05/23/23 azithromycin 250 mg tablet 250 mg PO DAILY 4 days #4 tabs 08/18/23 cefuroxime axetil 500 mg tablet 500 mg PO Q12H #14 tabs 08/18/23 Allergies Allergy/AdvReac Type Severity Reaction Status Date / Time pecan nut Allergy Anaphylaxis Verified 08/17/23 21:48 walnut AdvReac swollen Verified 08/17/23 21:48 throat Review of Systems 2 Constitutional: Constitutional: Denies body ache(s), Denies chills and Denies fever(s) Cardiovascular: Cardiovascular: Denies chest pain and Reports dyspnea Respiratory: Respiratory: Reports chest congestion, Reports cough and Reports dyspnea Gastrointestinal: Gastrointestinal: Denies abdominal pain, Denies nausea and Denies vomiting Musculoskeletal: Musculoskeletal: Denies back pain PMFSH Past Medical History Medical History Hypertension delivery delivered Surgical History Hx of tubal ligation Hx of section Family History Family History Father Diabetes Alzheimers disease Mother Arthritis High blood pressure Vertigo Tubular adenoma of colon Paternal Grandmother History of breast cancer Maternal Grandmother History of breast cancer Social History Social History Housing: Apartment Alcohol intake: former Patient Tobacco Use Status: Former Tobacco user e-Cigarette/Vaping Use: Former Use Second Hand Smoke Exposure: No Advance Directives: No Advance Directives Information Provided: Yes Do you have a plan to hurt others: No Plan service: No Current occupational status: unemployed Current occupation: stay at home Current occupational exposures/hazards: No Sexual orientation: Straight/Heterosexual Gender identity: Female Cognitive needs: No Hearing needs: No Vision needs: Yes Physical Exam ED Vital Signs: Vital Signs - 24 hr 08/17/23 21:41 08/17/23 23:53 08/18/23 00:59 Temperature 98.4 F 98.1 F Pulse Rate 107 H 83 Respiratory Rate 20 16 Blood Pressure 156/90 H 141/88 H Pulse Oximetry 98 96 97 Oxygen Delivery Method Room Air Room Air Room Air BMI result Body Mass Index 36.4 Const General: healthy appearing, comfortable, no acute distress, alert and awake Nutritional Appearance: well nourished Orientation/consciousness: patient oriented x3 HENMT Head: Yes normocephalic and Yes atraumatic Throat: Yes posterior oropharynx normal Eyes Eyelids: Yes eyelids normal Conjunctivae: conjunctivae normal Sclerae: sclerae normal Corneas: corneas normal Pupils: Equal, round and reactive pupils present EOM: EOMs intact bilaterally Neck Neck: Yes full ROM Resp Effort & Inspection: normal respiratory effort, able to speak in complete sentences, no audible wheezes and not labored Auscultation: clear to auscultation bilaterally Skin General skin exam: elasticity normal Neuro General: patient oriented x3 Cranial nerves: Yes Equal, round and reactive pupils present and Yes Bilaterally intact EOM present Cognition (Neuro): normal cognition Extrem Other: Moving all extremities well without any obvious deformities Medications Administered Discontinued Medications Generic Name Dose Route Start Last Admin Trade Name Freq PRN Reason Stop Dose Admin Azithromycin 500 mg 08/18/23 00:52 08/18/23 00:56 Azithromycin 500 Mg Tablet PO 08/18/23 00:53 500 mg ONCE ONE Administration Cefuroxime Axetil 500 mg 08/18/23 00:52 08/18/23 00:56 Cefuroxime Axetil 500 Mg Tablet PO 08/18/23 00:53 500 mg ONCE ONE Administration Medical Decision Making Medical Decision Making [facility] Narrative: 42-year-old female with past medical history significant for asthma presents for evaluation of shortness of breath with cough. Her labs show a slight leukocytosis, her vital signs are within normal limits. Chest x-ray shows right upper lobe bronchopneumonia. Given the x-ray findings and history of asthma will treat with azithromycin cefuroxime for community-acquired pneumonia. There was no evidence of sepsis Differential Diagnosis Differential Diagnoses: The differential diagnosis associated with the presentation includes Acute bronchitis Pneumonia COPD Congestive heart failure Allergic rhinitis Influenza COVID-19 Admission/Observation Consideration of admission/observation: Escalation of care including admission/observation considered Consider admission due to bronchopneumonia, however the patient is not hypoxic or septic and she may tolerate oral antibiotics Lab Data [facility] Lab Attestation statement: I reviewed the patient's lab results. Slight leukocytosis to 12.5 K. No significant anemia. Normal platelet count. No significant electrolyte abnormalities. 08/17/23 21:56 08/17/23 21:56 Labs: Lab Results 08/17/23 08/17/23 Range/Units 21:55 21:56 WBC 12.5 H (4.8-10.8) X10*3/uL RBC 4.59 (4.20-5.50) X10*6/uL Hgb 13.0 (12.0-16.0) g/dl Hct 37.1 (37.0-47.0) % MCV 80.8 (80.0-98.0) fL MCH 28.3 (27.0-33.0) pg MCHC 35.0 (31.0-35.0) g/dl RDW 12.7 (11.0-16.0) % Plt Count 259 (160-400) X10*3/uL MPV 9.2 L (9.4-12.3) fL Immature Gran % (Auto) 0.3 (0.0-0.4) % Neut % (Auto) 68.1 (45-73) % Lymph % (Auto) 22.6 (20-40) % [place] % (Auto) 6.5 (2-11) % Eos % (Auto) 2.0 (0-4) % Baso % (Auto) 0.5 (0-2) % Lymph # (Auto) 2.8 (1.2-4.9) X10*3/uL [place] # (Auto) 0.8 (0.1-1.2) X10*3/uL Eos # (Auto) 0.3 (0.0-0.4) X10*3/uL Baso # (Auto) 0.1 (0.0-0.2) X10*3/uL Abs Immat Gran (auto) 0.04 H (0.00-0.03) X10*3/uL Absolute Neuts (auto) 8.5 H (2.0-8.3) x10*3/uL Absolute Nucleated RBC 0.000 (0.0-0.012) X10*3/uL Nucleated RBC % (auto) 0.0 (0.0-0.2) /100WBC Sodium 138 (135-145) mmol/L Potassium 3.7 (3.3-5.1) mmol/L Chloride 106 (96-108) mmol/L Carbon Dioxide 21 L (22-29) mmol/L Anion Gap 15 (12-20) BUN 8 L (9-16) mg/dL Creatinine 0.76 (0.5-1.4) mg/dL Estim Creat Clear Calc 96.9 Estimated GFR > 60 Random Glucose 111 (60-115) mg/dL Calcium 9.2 (8.4-10.2) mg/dL COVID-19 (YAJAIRA) Negative (Negative) COVID-19 Clin Com See Note Influenza Type A (GENI) Negative (Negative) Influenza Type B (GENI) Negative (Negative) Influenza A & B Note See Note S. pyogenes GrpA GENI Negative (Negative) Independent Interpretation I performed an independent interpretation of an: Plain X-Ray Interpretation: Agree with Radiology interpretation, right upper lobe infiltrate Radiology Impression Discussion of test interpretation with radiology: I have reviewed the radiologist's reading. Radiologist Impression: XR/XR chest 2V IMPRESSION: Bronchial wall thickening and increased attenuation in the right upper lobe suggestive of bronchopneumonia. Follow-up chest x-ray following treatment recommended. Discharge Plan Discharge Clinical Impression: Community acquired pneumonia Patient Disposition: Home, Self-Care Instructions: Community Acquired Pneumonia (ED) Additional Instructions: Your x-ray shows right upper lobe pneumonia You were given a dose of antibiotics in the ER Take the azithromycin daily starting tomorrow Take cefuroxime twice daily Use ibuprofen/Tylenol for any fevers or pain Return for new or worsening symptoms Prescriptions: New azithromycin 250 mg tablet 250 mg PO DAILY 4 Days Qty: 4 0RF Rx Instructions: start on day 2 of therapy cefuroxime axetil 500 mg tablet 500 mg PO Q12H Qty: 14 0RF No Action ipratropium bromide 42 mcg (0.06 %) spray,non-aerosol 2 spray intranasal BID 30 Days Qty: 15 3RF Rx Instructions: administer into each nostril ursodiol 300 mg capsule 300 mg PO DAILY 30 Days Qty: 30 2RF montelukast [Singulair] 10 mg tablet 10 mg PO DAILY 90 Days Qty: 90 1RF azithromycin 250 mg tablet See Rx Instructions PO .COMPLEX Qty: 6 0RF Rx Instructions: For 250 mg dose pack: take 500 mg today (day 1), then 250 mg for 4 days (days 2-5) PO losartan 25 mg tablet 25 mg PO DAILY 90 Days Qty: 90 1RF albuterol sulfate 90 mcg/actuation HFA aerosol inhaler 1 inh inhalation QID PRN (Reason: shortness of breath or wheezing) Qty: 8.5 0RF naproxen 500 mg tablet 500 mg PO BID PRN (Reason: pain) 14 Days Qty: 28 0RF ergocalciferol (vitamin D2) 1,250 mcg (50,000 unit) capsule 1,250 mcg PO QWEEK senna 8.6 mg capsule 17.2 mg PO BEDTIME polyethylene glycol 3350 [Miralax] 17 gram/dose powder 17 g PO DAILY 30 Days Qty: 510 0RF Rx Instructions: Take every day for constipation. Can skip dose if BMs loose. Interventions: ED Discharge Assessment Last Done: 08/18/23 01:00 Print Language: Spanish
[2023-08-18] MEDS: Azithromycin 500 MG TABLET PO (00:56)
[2023-08-18] MEDS: cefuroxime axetiL 500 MG TABLET PO (00:56)
[2023-08-18 00:59] VITALS: O2SAT 97
[2023-08-18 01:00] VITALS: BP 141/88; PULSE 83; RESP 18; TEMP 36.7; O2SAT 97
== END 2023-08-18 01:01 | disposition home or self-care (01) ==
PROVIDERS: Emergency Provider Emergency Medicine; PCP Physician Assistant
DX: J18.9 Pneumonia, unspecified organism (principal); J45.909 Unspecified asthma, uncomplicated; I10 Essential (primary) hypertension; Z11.52 Encounter for screening for COVID-19
CPT/HCPCS: 71046; 80048; 85025; 87502; 87635; 87651; 93005; 99283; 99284

== ENCOUNTER → 2023-08-17 21:47 | Outpatient (BNV) | payer OTHER, SELFPAY | PROVIDERS: Emergency Provider Emergency Medicine; PCP Physician Assistant; Visit Provider Internal Medicine Cardiovascular Disease | DX: R00.0 Tachycardia, unspecified (principal) | CPT/HCPCS: 93010 ==

== ENCOUNTER 2023-09-27 16:19 | Emergency (ER) | payer OTHER, SELFPAY ==
--- NOTE | ~2023-09-27 | XR_ITS ---
EXAMINATION: XR KNEE, RIGHT CLINICAL INFORMATION: Pain, injury. COMPARISON: None available. TECHNIQUE: Four views of the right knee. FINDINGS: No evidence of acute fracture or subluxation. Joint spaces are maintained. No abnormal soft tissue calcifications. No joint effusion. XR/XR knee RT 3V IMPRESSION: No evidence of acute fracture or subluxation.
[2023-09-27 16:43] VITALS: BP 156/102; PULSE 89; RESP 18; TEMP 36.4; O2SAT 98; BMI 36.6
--- NOTE | 2023-09-27 16:44 | ED.GENADULT ---
HPI - General Adult General Chief complaint: Extremity Problem Stated complaint: knee pain , cant put pressure Time Seen by Provider: 09/27/23 19:59 Source: patient Mode of arrival: ambulatory Limitations: no limitations History of Present Illness HPI narrative: Patient is a 43-year-old female who presents emergency department for evaluation of acute right knee pain. Reports yesterday while standing up from the couch she felt immediate pain to her right knee and felt a popping sensation. She states that she had significant decreased range of motion to her extremities since then. She has not taken any OTC analgesics. She has not applied any ice to the area. She denies numbness or tingling to the extremity. Denies any history of prior injury to the right knee. She admits to a history of arthritis in her hands, is uncertain whether she has any arthritis to her knees. Related Data Home Medications ?Medication ?Instructions ?Recorded ?Confirmed ergocalciferol (vitamin D2) 1,250 1,250 mcg PO QWEEK 07/02/21 01/26/23 mcg (50,000 unit) capsule sennosides 8.6 mg capsule (senna) 17.2 mg PO BEDTIME 05/27/22 01/26/23 Previous Rx's ?Medication ?Instructions ?Recorded naproxen 500 mg tablet 500 mg PO BID PRN pain 14 days #28 02/16/22 tabs polyethylene glycol 3350 17 17 g PO DAILY constipation 30 days 05/27/22 gram/dose oral powder (Miralax) #510 grams ipratropium bromide 42 mcg (0.06 2 spray intranasal BID 30 days #15 06/20/22 %) nasal spray mL albuterol sulfate 90 mcg/actuation 1 inh inhalation QID PRN shortness 08/03/22 aerosol inhaler of breath or wheezing #8.5 grams ursodiol 300 mg capsule 300 mg PO DAILY 30 days #30 caps 11/04/22 montelukast 10 mg tablet 10 mg PO DAILY 90 days #90 tabs 03/02/23 (Singulair) azithromycin 250 mg tablet See Rx Instructions PO .COMPLEX #6 04/21/23 tabs losartan 25 mg tablet 25 mg PO DAILY 90 days #90 tabs 05/23/23 azithromycin 250 mg tablet 250 mg PO DAILY 4 days #4 tabs 08/18/23 cefuroxime axetil 500 mg tablet 500 mg PO Q12H #14 tabs 08/18/23 Allergies Allergy/AdvReac Type Severity Reaction Status Date / Time pecan nut Allergy Anaphylaxis Verified 09/27/23 16:47 walnut AdvReac swollen Verified 09/27/23 16:47 throat Review of Systems Review of Systems: Yes all other systems are reviewed and are negative [facility] Past Medical History Attestation statement: The following information was validated with the patient. Source: old records reviewed Medical History Hypertension delivery delivered Surgical History Hx of tubal ligation Hx of section Family History Family History Father Diabetes Alzheimers disease Mother Arthritis High blood pressure Vertigo Tubular adenoma of colon Paternal Grandmother History of breast cancer Maternal Grandmother History of breast cancer Social History Social History Housing: Apartment Alcohol intake: former Patient Tobacco Use Status: Former Tobacco user e-Cigarette/Vaping Use: Former Use Second Hand Smoke Exposure: No Advance Directives: No Advance Directives Information Provided: No Do you have a plan to hurt others: No Plan service: No Current occupational status: unemployed Current occupation: stay at home Current occupational exposures/hazards: No Sexual orientation: Straight/Heterosexual Gender identity: Female Cognitive needs: No Hearing needs: No Vision needs: Yes Physical Exam ED Vital Signs: Vital Signs - 24 hr 09/27/23 16:43 09/27/23 20:45 Temperature 97.6 F 97.3 F Pulse Rate 89 85 Respiratory Rate 18 18 Blood Pressure 156/102 H 151/97 H Pulse Oximetry 98 98 Oxygen Delivery Method Room Air Room Air BMI result Body Mass Index 36.6 Appearance: Alert.?Oriented to person, place and time. No acute distress.?Normal affect. Neck: Normal inspection.? Neck supple.?? CVS: Heart sounds normal. Normal heart rate and rhythm.? Pulses normal.?? Respiratory: No respiratory distress.? Lung sounds clear to auscultation bilaterally?? Abdomen: Soft and non-tender. Normoactive bowel sounds. Skin: Skin warm and dry.? Normal skin color.? Extremities: No pedal edema. No calf tenderness upon palpation. 2+ DP/PT pulse bilaterally. Pain to the right lateral knee, localized swelling and deformity to the lateral suprapatellar region/distal thigh. She is able to tense her right quad to a degree but is painful to do so fully. Has no midline palpable deformity. She is able to police leg in full extension Neuro: Moves all extremities spontaneously. Sensation intact bilaterally. CN II-XII intact. No focal neuro deficits. Ambulates with normal steady gait. Course Course Course Narrative: RME performed by Shahnaz Mcgregor PA-C. Patient is a 43 year old assigned female at presenting to the emergency department with right knee pain. Patient states that yesterday she stood up from the couch, her right knee gave out, and now she is having pain walking on it. Detailed physical exam and review of systems are deferred to the infection preventionist. Imaging ordered. Patient placed back in the waiting room pending room availability and results. Medical Decision Making Medical Decision Making MDM Narrative: Patient is a 43-year-old female who presents emergency department for evaluation of right knee pain as per HPI. Deformity to the lateral suprapatellar region as per physical exam portion of this note, no palpable indent or deformity at the patellar tendon insertion site, she is able to maintain her leg in a full extension, suspect this is less likely a complete tear. Discussed with patient concern for partial tear, ligamentous injury, versus sprain/strain. XR was without acute fracture or dislocation. Her extremities neurovascularly intact distally. She has placed in a knee immobilizer and provided with crutches, advised conservative treatment, nonweightbearing, strict return precautions, and close outpatient follow-up with orthopedics. All questions answered. Stable for discharge Differential Diagnosis Differential Diagnoses: The differential diagnosis associated with the presentation includes (See narrative above) Independent Interpretation I performed an independent interpretation of an: Plain X-Ray (No acute fracture) Radiology Impression Discussion of test interpretation with radiology: I have reviewed the radiologist's reading. Radiologist Impression: XR/XR knee RT 3V IMPRESSION: No evidence of acute fracture or subluxation. External Record Review External record reviewed: Outpatient record Tests considered The following testing was considered but not selected: No indication for emergent CT/MRI at this. Prescription Management I considered prescription management with: Pain Medication Discharge Plan Discharge Clinical Impression: Knee sprain Qualifiers: Encounter type: initial encounter Laterality: right Patient Disposition: Home, Self-Care Instructions: Knee Sprain (ED), Crutch Instructions (ED), R.I.C.E. Treatment (ED) Additional Instructions: As discussed, your x-ray today does not show any evidence of fracture or dislocation. Your exam is concerning for possible ligament injury versus quadriceps injury. Keep the knee immobilizer in place as discussed, use crutches and do not put weight on this leg. Follow-up instructions regarding rest, ice, elevation. Continue taking naproxen as prescribed, do not take additional [id number] ibuprofen/Motrin/Advil or Aleve while taking this medication. Contact Orthopedics Department tomorrow morning to arrange for close follow-up. Return back to emergency department with any new or worsening symptoms or concerns. Prescriptions: No Action ipratropium bromide 42 mcg (0.06 %) spray,non-aerosol 2 spray intranasal BID 30 Days Qty: 15 3RF Rx Instructions: administer into each nostril ursodiol 300 mg capsule 300 mg PO DAILY 30 Days Qty: 30 2RF montelukast [Singulair] 10 mg tablet 10 mg PO DAILY 90 Days Qty: 90 1RF azithromycin 250 mg tablet See Rx Instructions PO .COMPLEX Qty: 6 0RF Rx Instructions: For 250 mg dose pack: take 500 mg today (day 1), then 250 mg for 4 days (days 2-5) PO losartan 25 mg tablet 25 mg PO DAILY 90 Days Qty: 90 1RF azithromycin 250 mg tablet 250 mg PO DAILY 4 Days Qty: 4 0RF Rx Instructions: start on day 2 of therapy cefuroxime axetil 500 mg tablet 500 mg PO Q12H Qty: 14 0RF albuterol sulfate 90 mcg/actuation HFA aerosol inhaler 1 inh inhalation QID PRN (Reason: shortness of breath or wheezing) Qty: 8.5 0RF naproxen 500 mg tablet 500 mg PO BID PRN (Reason: pain) 14 Days Qty: 28 0RF ergocalciferol (vitamin D2) 1,250 mcg (50,000 unit) capsule 1,250 mcg PO QWEEK senna 8.6 mg capsule 17.2 mg PO BEDTIME polyethylene glycol 3350 [Miralax] 17 gram/dose powder 17 g PO DAILY 30 Days Qty: 510 0RF Rx Instructions: Take every day for constipation. Can skip dose if BMs loose. Referrals: Vamshi Ojeda PA [Physician Waste Management Engineer] - Cheo Patterson PA-C [Primary Care Provider] - Stand Alone Forms: Work/School Release Print Language: Greek
[2023-09-27 20:45] VITALS: BP 151/97; PULSE 85; RESP 18; TEMP 36.3; O2SAT 98
[2023-09-27 22:01] VITALS: BP 148/100; PULSE 81; RESP 20; TEMP 36.6; O2SAT 97
[2023-09-27 22:10] VITALS: BP 148/100; PULSE 81; RESP 20; TEMP 36.6; O2SAT 97
== END 2023-09-27 22:10 | disposition home or self-care (01) ==
PROVIDERS: Emergency Provider Emergency Medicine; PCP Physician Assistant
DX: M25.561 Pain in right knee (principal)
CPT/HCPCS: 73562; 99283

== ENCOUNTER 2023-10-01 14:04 | Outpatient (AMB) | payer OTHER, SELFPAY ==
--- NOTE | 2023-10-01 14:14 | A.OFFVIS_ITS ---
Intake Visit Reasons: [employer]IC-acute right knee pain/sprain Intake Note: Renee is a 43 year old female who presents to the office today for a new patient visit for acute right knee pain. Pt states the right knee pain started wednesday09/26/23. Pt states she thinks her knee gave out and she caught herself but since then she states she has been having constant pain. Pt was given a brace at the ER which she has been wearing. Pt denies any previous injury/surgeries/or injections in her right knee. Allergies pecan nut Allergy (Verified 10/01/23 14:14) Anaphylaxis walnut Adverse Reaction (Verified 10/01/23 14:14) swollen throat Medication List - Last Reconciled 10/03/23 by Deyanira Groves PA-C albuterol sulfate 90 mcg/actuation 1 inh inhalation QID PRN ergocalciferol (vitamin D2) 1,250 mcg PO QWEEK ipratropium bromide 2 sprays intranasal BID 30 days losartan 25 mg PO DAILY 90 days montelukast (Singulair) 10 mg PO DAILY 90 days naproxen 500 mg PO BID PRN 14 days naproxen 500 mg PO BID 30 days polyethylene glycol 3350 (Miralax) 17 grams PO DAILY 30 days sennosides (senna) 17.2 mg PO BEDTIME ursodiol 300 mg PO DAILY 30 days HPI HPI [employer]IC-acute right knee pain/sprain: Details: 43-year-old female who presents to the office today for an evaluation of acute right knee pain. She reports her pain started on 09/26/23 after her knee gave out and she caught herself. She was seen at ER where she was given a brace which she wears as instructed. She currently states she has constant pain in her knee. She also reports a popping sensation with standing up. She denies any previous injury and has not had any treatment in the past. [facility] Medical History Hypertension delivery delivered Surgical History Hx of tubal ligation Hx of section Family History Father Diabetes Alzheimers disease Mother Arthritis High blood pressure Vertigo Tubular adenoma of colon Paternal Grandmother History of breast cancer Maternal Grandmother History of breast cancer Social History Housing: Apartment Alcohol intake: former Patient Tobacco Use Status: Former Tobacco user e-Cigarette/Vaping Use: Former Use Second Hand Smoke Exposure: No service: No Current occupational status: unemployed Current occupation: stay at home Current occupational exposures/hazards: No Sexual orientation: Straight/Heterosexual Gender identity: Female Cognitive needs: No Hearing needs: No Vision needs: Yes Female Reproductive History Menstrual Age of Menarche: 11 Review of Systems Const All systems reviewed & are unremarkable except as noted in HPI and below Physical Exam Const General: cooperative, healthy appearing, comfortable, no acute distress, well developed and alert Orientation/consciousness: patient oriented x3 HEENT Head: Yes normal to inspection, Yes normocephalic and Yes atraumatic Eyes General: appearance normal, both eyes and all related structures Resp Effort & Inspection: normal respiratory effort and able to speak in complete sentences Cardio Rate: regular rate Peripheral pulses: Peripheral pulses 2+ throughout GI Palpation (GI): Soft to palpation Skin Lesions: no lesions Rashes: no rashes Neuro General: patient oriented x3 Extrem Other: Right knee: Skin intact, no erythema or joint effusion. Tenderness along the medial joint line. ROM is 5-80 degrees. Positive Bharati?s. No ligamentous laxity. NVI. Results Reviewed Results Reviewed: XR knee RT 3V 09/27/23 IMPRESSION: No evidence of acute fracture or subluxation. Assessment & Plan Assessment & Plan (1) Internal derangement of right knee: Code(s): M23.91 - Unspecified internal derangement of right knee Category: Medical Plan An MRI of the right knee was obtained in the office today. She was placed in a h inged knee brace and she will follow-up once the scan is complete. Orders: Orders MR knee RT wo con 10/01/23 M17.11 - Unilateral primary osteoarthritis, right knee Medications: New naproxen 500 mg PO BID 60 tabs 3RF 30 days Patient Instructions: Scribed for Deyanira Groves PA-C, by Sabino Gallardo medical reviewer, on 10/01/2023 at 2:15 PM EST.? I, Deyanira Groves PA-C, have personally reviewed and agree with the information entered by the scribe. Coding Level of Care Code New Pt Level 3 (08773) Diagnoses Internal derangement of right knee M23.91
== END 2023-10-01 14:56 | disposition home or self-care (01) ==
PROVIDERS: PCP Physician Assistant; Visit Provider Physician Assistant
DX: M23.91 Unspecified internal derangement of right knee (principal)
CPT/HCPCS: 99203

== ENCOUNTER → 2023-10-01 14:04 | Outpatient (BNVA) | payer OTHER, SELFPAY | PROVIDERS: PCP Physician Assistant; Visit Provider Physician Assistant ==

== ENCOUNTER 2023-12-01 10:56 | Outpatient (REF) | payer OTHER, SELFPAY ==
--- NOTE | ~2023-12-01 | MM_ITS ---
EXAMINATION: MM SCREENING DIGITAL BREAST TOMOSYNTHESIS, BILATERAL CLINICAL INFORMATION: Screening. Asymptomatic. COMPARISON: Mammography: Comparison is made with available priors TECHNIQUE: Digital breast mammography with tomosynthesis is performed in both the craniocaudal and mediolateral oblique views along with computer-aided detection (CAD). FINDINGS: There are scattered areas of fibroglandular density (ACR BI-RADS breast composition Category b). Left: There are no significant masses, abnormal calcifications, or other abnormalities. Right: Asymmetry superior breast middle to posterior depth on MLO view. No suspicious calcifications or other abnormal findings. MM/MM tomosynthesis screening BI IMPRESSION: Additional imaging is recommended ASSESSMENT: BI-RADS BI-RADS 0 - Incomplete: Needs additional Imaging. RECOMMENDATION: 1. Additional views of the right breast 2. Targeted ultrasound if warranted after review of the additional views. 3. Radiology department staff will contact the patient for additional imaging. Additional Imaging required This examination should not preclude the clinical evaluation of a suspicious palpable abnormality. This patient's information was entered into a reminder system with a target due date for their next mammogram. Electronically signed by: Caitlyn Jett DO 12/14/2023 04:22 PM EDT
== END 2023-12-01 10:57 | disposition home or self-care (01) ==
LOC: HO.MAMMO 10:56
PROVIDERS: PCP Physician Assistant; Visit Provider Physician Assistant
DX: Z12.31 Encounter for screening mammogram for malignant neoplasm of breast (principal)
CPT/HCPCS: 77063; 77067

== ENCOUNTER → 2023-12-01 11:15 | Outpatient (BNV) | payer OTHER, SELFPAY | PROVIDERS: PCP Physician Assistant; Visit Provider Internal Medicine | DX: Z12.31 Encounter for screening mammogram for malignant neoplasm of breast (principal) | CPT/HCPCS: 77063; 77067 ==

== ENCOUNTER 2024-02-02 10:51 | Outpatient (REF) | payer BC, SELFPAY ==
--- NOTE | ~2024-02-02 | MM_ITS ---
EXAMINATION: MM DIAGNOSTIC DIGITAL BREAST TOMOSYNTHESIS, RIGHT CLINICAL INFORMATION: Diagnostic exam; one view asymmetry superior right MLO view, middle to posterior depth, seen on screening exam. COMPARISON: Mammography: 12/01/2023 screening exam. Available priors. TECHNIQUE: Digital breast tomosynthesis is performed utilizing the following views: Full field 3-D digital right ML view, and a 3-D spot compression right MLO view. Computer-aided diagnosis was used for this study. FINDINGS: There are scattered areas of fibroglandular density (ACR BI-RADS breast composition Category b). 1 view asymmetry in the superior right breast, MLO view only, with no CC correlate, does not persist on spot compression view or the full field right ML view. Findings are consistent with superimposition artifact/overlap of normal fibroglandular tissues. No suspicious findings in the right breast. MM/MM tomosynthesis added views R IMPRESSION: -No persistent findings suspicious for malignancy right breast. -Recommend the patient return to routine annual screening. ASSESSMENT: BI-RADS BI-RADS 1 - Negative RECOMMENDATION: 1 year F/U Results were provided to the patient at time of visit by the technologist. This patient's information was entered into a reminder system with a target due date for their next mammogram. Electronically signed by: Santo Tobar MD 02/02/2024 11:39 AM [place]
== END 2024-02-02 10:52 | disposition home or self-care (01) ==
LOC: HO.MAMMO 10:51
PROVIDERS: PCP Physician Assistant; Visit Provider Physician Assistant
DX: N64.89 Other specified disorders of breast (principal)
CPT/HCPCS: 77061; 77065

== ENCOUNTER → 2024-02-02 11:00 | Outpatient (BNV) | payer BC, SELFPAY | PROVIDERS: PCP Physician Assistant; Visit Provider Radiology Diagnostic Radiology | DX: R92.321 Mammographic fibroglandular density, right breast (principal) | CPT/HCPCS: 77061; 77065 ==

== ENCOUNTER 2024-03-14 09:47 | Outpatient (REF) | payer BC, SELFPAY ==
[2024-03-14 11:01] LABS: Hematocrit 41.6 % (37.0-47.0); Mean Corpuscular HGB Conc 33.7 g/dl (31.0-35.0); Mean Corpuscular Hemoglobin 27.4 pg (27.0-33.0); Mean Corpuscular Volume 81.4 fL (80.0-98.0); Mean Platelet Volume 9.8 fL (9.4-12.3); Platelet Count 277 X10*3/uL (160-400); Red Blood Count 5.11 X10*6/uL (4.20-5.50); Red Cell Distribution Width 13.1 % (11.0-16.0); White Blood Count 9.6 X10*3/uL (4.8-10.8)
[2024-03-14 11:43] LABS: Creatinine Urine 216.71 mg/dL; Microalbum/Creatinine Ratio Ur 6.9 ug/mg cr (<30)
[2024-03-14 11:46] LABS: Alanine Aminotransferase 24 U/L (0-31); Alkaline Phosphatase 96 U/L (39-117); Anion Gap 12 (12-20); Aspartate Amino Transferase 26 U/L (5-31); Bilirubin Total 0.7 mg/dL (0.0-1.0); Blood Urea Nitrogen 11 mg/dL (9-16); Calcium 8.8 mg/dL (8.4-10.2); Carbon Dioxide 23 mmol/L (22-29); Chloride 108 mmol/L (96-108); Cholesterol 175 mg/dL (<200); Estimated Glomerular Filt Rate > 60; Glucose Fasting 96 mg/dL (60-99); HDL Cholesterol 26 mg/dL (>40); LDL Cholesterol Calculated 108 mg/dL (<100); Potassium 3.8 mmol/L (3.3-5.1); Sodium 139 mmol/L (135-145); Total Protein 7.2 g/dL (6.5-8.0); Triglycerides 206 mg/dL (<150)
== END 2024-03-14 09:48 | disposition home or self-care (01) ==
LOC: HO.LAB 09:47
PROVIDERS: PCP Physician Assistant; Visit Provider Physician Assistant
DX: Z00.01 Encounter for general adult medical examination with abnormal findings (principal); I10 Essential (primary) hypertension; E78.1 Pure hyperglyceridemia; G47.33 Obstructive sleep apnea (adult) (pediatric); E66.812 Obesity, class 2; Z68.36 Body mass index [BMI] 36.0-36.9, adult; L71.9 Rosacea, unspecified; J45.20 Mild intermittent asthma, uncomplicated
CPT/HCPCS: 36415; 80053; 80061; 82043; 82570; 85027; 96127

== ENCOUNTER 2024-03-14 11:15 | Outpatient (AMB) | payer BC, SELFPAY ==
[2024-03-14 11:18] VITALS: BP 146/90; PULSE 111; O2SAT 98; BMI 36.5
--- NOTE | 2024-03-14 11:18 | A.OFFPC_ITS ---
Vital Signs 03/14/24 11:18 Height 5 ft 1 in Weight 193 lb 2 oz BMI 36.5 BP 146/90 H Blood Pressure Location Lt brachial Position Sitting Pulse 111 H Pulse Source Pulse Oximeter Pulse Oximetry (%) 98 Oxygen Delivery Method Room Air Intake Visit Reasons: annual exam Intake Note: Patient is here today for a physical. Gameroom Technician Required: No Accompanied by: Son Allergies pecan nut Allergy (Verified 03/14/24 11:34) Anaphylaxis walnut Adverse Reaction (Verified 03/14/24 11:34) swollen throat Medication List - Last Reconciled 03/14/24 by Cheo Patterson PA-C albuterol sulfate 90 mcg/actuation 1 inh inhalation QID PRN ergocalciferol (vitamin D2) 1,250 mcg PO QWEEK ipratropium bromide 2 sprays intranasal BID 30 days losartan 25 mg PO DAILY 90 days montelukast (Singulair) 10 mg PO DAILY 90 days naproxen 500 mg PO BID 30 days polyethylene glycol 3350 (Miralax) 17 grams PO DAILY 30 days sennosides (senna) 17.2 mg PO BEDTIME ursodiol 300 mg PO DAILY 30 days Tobacco use date assessed: 09/03/22 Dental Screening Dental Screen Date: 09/03/22 HPI annual exam HPI Details Patient is a 43-year-old female here today for routine annual physical..? Patient has a past medical history significant exercise-induced as thma hypertension, obesity. She continues to work full-time at a local [employer] and has an autistic son whom she takes care of his well. -Concern---> she reports her has been te lls her she snores loudly and stops breathing at night. She is concerned about obstructive sleep apnea. She also has developed a red rash over bilateral cheeks and concern she has rosacea. She does report her mother also has rosacea. .. Class 2 obesity: Patient unfortunately has not been able to lose much weight, she does report reducing her portion and reducing soda and sugar in her diet. She is not been able to be physically active due to her work schedule. She is interested in trying a GLP 1 to help her reduce her weight. .. ..Hypertriglyceridemia :? Most recent li pid panel showing triglycerides just a jordyn 300. PLAN:? Patient interested in medication for this at this time,? Will work on low cholesterol diet .. ..Asthma:? Has been well controlled with only p.r.n. use of her albuterol inhaler. ..HTN: Blood pressure elevated today in office. She is consistent with the use of losartan 25 mg. Doesnt monitor BP at home.? Will evaluate for sleep apnea as a potential cause of her high blood pressure PLAN: Will increase her losartan dose to 50 mg for better blood pressure control. .. Family history breast cancer: Followed by learning administrator here at [place], recently had mammogram BI-RADS 1. Vaccines: Up-to-date with tetanus and pneumonia vaccines. Considering flu vaccine [facility] Medical History Hypertension delivery delivered Surgical History Hx of tubal ligation Hx of section Family History Father Diabetes Alzheimers disease Mother Arthritis High blood pressure Vertigo Tubular adenoma of colon Paternal Grandmother History of breast cancer Maternal Grandmother History of breast cancer Social History (Updated 03/14/24 @ 11:40 by Cheo Patterson PA-C) Housing: Apartment Alcohol intake: current Alcohol intake frequency: holidays/special occasions only Tobacco use type: Smokeless Tobacco e-Cigarette/Vaping Use: Former Use Second Hand Smoke Exposure: No service: No Current occupational status: unemployed Current occupation: stay at home Current occupational exposures/hazards: No Sexual orientation: Straight/Heterosexual Gender identity: Female Cognitive needs: No Hearing needs: No Vision needs: Yes Female Reproductive History Menstrual Age of Menarche: 11 Questionnaire PHQ-9 Over the last 2 weeks, how often have you been bothered by any of the following problems? 1. Little interest or pleasure in doing things: not at all 2. Feeling down, depressed, or hopeless: not at all 3. Trouble falling or staying asleep, or sleeping too much: not at all 4. Feeling tired or having little energy: several days 5. Poor appetite or overeating: more than half the days 6. Feeling bad about yourself - or that you are a failure or have let yourself or your family down: several days 7. Trouble concentrating on things, such as reading the newspaper or watching television: not at all 8. Moving or speaking so slowly that other people could have noticed. Or the opposite - being so fidgety or restless that you have been moving around a lot more than usual: not at all 9. Thoughts that you would be better off or of hurting yourself in some way: not at all Total score: 4 Depression Screening Interpretation: Positive Depression Screening Follow-up: Existing condition Depression Screening Done: Yes 99158 - PHQ-9 Billing: Yes Source: Developed by Drs. Hudson Pinon, Kathy Forde, Jasper Palomo and colleagues, with an educational dorota from [employer]_. Thrive Questionnaire Date Thrive assessed: 09/03/22 I am a: Patient What is your living situation today?: I have a steady place to live Within the past 12 months, did the food you bought not last and you didn't have the money to get more?: Never true Within the past 12 months, did you worry whether your food would run out before you got money to buy more?: Never true Do you have trouble paying for medicines?: No Do you have trouble getting transportation to medical appointments?: No Do you have trouble paying your heating and electricity bill?: No Do you have trouble taking care of your child, family member or friend?: No Do you have trouble with day-to-day activities such as bathing, preparing meals, shopping, managing finances, etc.?: No Are you currently unemployed and looking for a job?: No Are you interested in more education?: No Please select the resources that you would like help with: None Currently or been in a relationship where the following occur: No concerns reported THRIVE Score: 0 AUDIT C Alcohol Use Questionnaire (AUDIT-C) 1. How often do you have a drink containing alcohol?: Monthly or less 2. How many drinks containing alcohol do you have on a typical day when you are drinking?: 1 or 2 3. How often do you have six or more drinks on one occasion?: Never Total Score: 1 SHYANNE-7 AMB Questionnaire SHYANNE-7 Date SHYANNE - 7 assessed: 09/03/22 Feeling nervous, anxious, or on edge: 0 = Not at all Not being able to stop or control worryin = Not at all Worrying too much about different things: 0 = Not at all Trouble relaxin = Not at all Being so restless that it is hard to sit still: 0 = Not at all Becoming easily annoyed or irritable: 0 = Not at all Feeling afraid as if something awful might happen: 0 = Not at all Total SHYANNE-7 score (0-4 normal; 5-9 mild; 10-14 moderate; 15-21 severe): 0 Source: Developed by Drs. Hudson Pinon, Kathy Forde, Jasper Palomo and colleagues, with an educational dorota from [employer]_. SHYANNE-7 Assessment Billing SHYANNE-7 Assessment Tool: SHYANNE-7 Assessment 22785 Physical exam (Primary Care) Vital Signs: Last Vital Signs Pulse 111 H 03/14/24 11:18 BP 146/90 H 03/14/24 11:18 Pulse Ox 98 03/14/24 11:18 Oxygen Delivery Method Room Air 03/14/24 11:18 BMI result Body Mass Index 36.5 Tobacco/Smoking Status: Tobacco use Status Tobacco use date assessed 09/03/22 03/14/24 11:20 Patient Tobacco Use Status 03/14/24 11:40 Tobacco use type Smokeless Tobacco 03/14/24 11:40 e-Cigarette/Vaping Use Former Use 03/14/24 11:40 PHQ-9: PHQ-9 Score PHQ-9: Total score 4 03/14/24 11:35 Depression Screening Interpretation: Positive Depression Screening Follow-up: Ex isting condition Thrive Assessment: Date of Thrive Assessment Date Thrive assessed 09/03/22 03/14/24 11:20 Currently or been in a relationship where the following occur: No concerns reported Coding Level of Care Code Est Pt Prev Care 40-64y(13089) Diagnoses Annual physical exam Z00.00 Essential hypertension I10 Hypertension type: essential hypertension BLANKA (obstructive sleep apnea) G47.33 Witnessed apneic spells R06.81 Class 2 obesity E66.812 Rosacea L71.9 Additional Codes PHQ-9 - 98462 - PHQ-9 Billing: Yes ([id number]) SHYANNE-7 Assessment Billing - SHYANNE-7 Assessment Tool: SHYANNE-7 Assessment [id number] ([id number]) Assessment & Plan Assessment & Plan (1) Annual physical exam: Code(s): Z00.00 - Encounter for general adult medical examination without abnormal findings Category: Medical Plan: As per HPI (2) HTN (hypertension): Code(s): I10 - Essential (primary) hypertension Category: Medical Qualifiers: Hypertension type: essential hypertension Qualified Code(s): I10 - Essential (primary) hypertension Plan: Patient's blood pressure elevated today in office. Will increase her dose of losartan to 50 mg for better blood pressure control. Goal blood pressure to be below 140/90 (3) BLANKA (obstructive sleep apnea): Code(s): G47.33 - Obstructive sleep apnea (adult) (pediatric) Category: Medical Plan: We have concerns about obstructive sleep apnea. She reports she has been told she has apneic episodes in snores very loudly. Will send for home sleep study to evaluate for obstructive sleep apnea (4) Witnessed apneic spells: Code(s): R06.81 - Apnea, not elsewhere classified Category: Medical Plan: As above (5) Class 2 obesity: Code(s): E66.812 - Obesity, class 2 Category: Medical Plan: Patient does understand her BMI is over 35 and will try to work on being more physically active and adapt to better eating habits to reduce her weight. She has reduced a lot of her calorie intake and sugary drinks though has not been able to lose much weight. She is willing to try GLP 1 to help reduce her weight. Will follow up in 6 weeks to evaluate the effectiveness of the medication. (6) Rosacea: Code(s): L71.9 - Rosacea, unspecified Category: Medical Plan: Has developed what appears to be rosacea. Will supply patient with Metrogel to use on a daily basis to reduce the redness over her cheeks. Of note does have family history of rosacea Orders: Orders RT home sleep study Today G47.33 - Obstructive sleep apnea (adult) (pediatric) Medications: New losartan 50 mg PO DAILY 90 tabs 1RF 90 days I10 - Essential (primary) hypertension tirzepatide (weight loss) (Zepbound) for 4 weeks 2.5 mg (0.5 mL) subcut QWEEK 2 mL 0RF 4 weeks E66.812 - Obesity, class 2, E78.1 - Pure hyperglyceridemia, G47.33 - Obstructive sleep apnea (adult) (pediatric) metronidazole 1% (Metrogel) 1 appl topical DAILY 60 grams 0RF 30 days L71.9 - Rosacea, unspecified Changed From ergocalciferol (vitamin D2) 1,250 mcg PO QWEEK I10 - Essential (primary) hypertension To ergocalciferol (vitamin D2) 1,250 mcg PO QWEEK 12 caps 0RF 12 weeks I10 - Essential (primary) hypertension From albuterol sulfate 90 mcg/actuation 1 inh inhalation QID PRN 8.5 grams 0RF shortness of breath or wheezing J45.20 - Mild intermittent asthma, uncomplicated To albuterol sulfate 90 mcg/actuation 1 inh inhalation QID PRN 8.5 grams 3RF shortness of breath or wheezing 30 days J45.20 - Mild intermittent asthma, uncomplicated Refilled montelukast (Singulair) 10 mg PO DAILY 90 tabs 1RF 90 days J45.20 - Mild intermittent asthma, uncomplicated Discontinued ipratropium bromide administer into each nostril Discontinued Reason: Doctor's Order 2 sprays intranasal BID 30 days 15 mL 3RF J30.1 - Allergic rhinitis due to pollen losartan Discontinued Reason: Doctor's Order 25 mg PO DAILY 90 days 90 tabs 1RF I10 - Essential (primary) hypertension
== END 2024-03-14 12:01 | disposition home or self-care (01) ==
PROVIDERS: PCP Physician Assistant; Visit Provider Physician Assistant
DX: Z00.00 Encounter for general adult medical examination without abnormal findings (principal); I10 Essential (primary) hypertension; E66.812 Obesity, class 2; Z68.36 Body mass index [BMI] 36.0-36.9, adult; G47.33 Obstructive sleep apnea (adult) (pediatric); R06.81 Apnea, not elsewhere classified; L71.9 Rosacea, unspecified

== ENCOUNTER 2024-04-10 08:41 | Outpatient (AMB) | payer BC, SELFPAY ==
[2024-04-10 09:25] VITALS: BP 130/82; PULSE 102; TEMP 36.7; O2SAT 98; BMI 36.5
--- NOTE | 2024-04-10 09:25 | MHC.OFFWIV ---
Intake Vital Signs 04/10/24 09:25 Height 5 ft 1 in Weight 193 lb 2 oz BMI 36.5 BP 130/82 Blood Pressure Location Lt brachial Position Sitting Pulse 102 H Pulse Source Pulse Oximeter Temp 98.1 F Temp Source Oral Pulse Oximetry (%) 98 Intake Visit Reasons: EP ? sinus infection Intake Note: pt is here for possible sinus infection Patient Tobacco Use Status: Never used Tobacco Allergies pecan nut Allergy (Verified 04/10/24 09:25) Anaphylaxis walnut Adverse Reaction (Verified 04/10/24 09:25) swollen throat Do you need a note to return to daycare/school/sports/work: No HPI HPI Comments History of Present Illness Details 43 y/o female patient who presents to the walk in with c/o URI symptoms. Pt reports coughing, chest tightness, and subjective fevers since . [facility] Medical History (Updated 04/10/24 @ 09:55 by Nellie Rhodes NP) Acute respiratory disease Hypertension delivery delivered Surgical History Hx of tubal ligation Hx of section Family History Father Diabetes Alzheimers disease Mother Arthritis High blood pressure Vertigo Tubular adenoma of colon Paternal Grandmother History of breast cancer Maternal Grandmother History of breast cancer Social History (Updated 03/14/24 @ 11:40 by Cheo Patterson PA-C) Housing: Apartment Alcohol intake: current Alcohol intake frequency: holidays/special occasions only Patient Tobacco Use Status: Never used Tobacco Tobacco use type: Smokeless Tobacco e-Cigarette/Vaping Use: Former Use Second Hand Smoke Exposure: No service: No Current occupational status: unemployed Current occupation: stay at home Current occupational exposures/hazards: No Sexual orientation: Straight/Heterosexual Gender identity: Female Cognitive needs: No Hearing needs: No Vision needs: Yes Female Reproductive History Menstrual Age of Menarche: 11 Review of Systems Const All systems reviewed & are unremarkable except as noted in HPI and below Physical Exam Vital Signs: Last Vital Signs Temp 98.1 F 04/10/24 09:25 Pulse 102 H 04/10/24 09:25 BP 130/82 04/10/24 09:25 Pulse Ox 98 04/10/24 09:25 BMI result Body Mass Index 36.5 Const General: comfortable and no acute distress Nutritional Appearance: obese Orientation/consciousness: patient oriented x3 HEENT Head: Yes normocephalic Ears: external ears normal and TM's normal bilaterally General nose exam: Abnormal mucous membranes and turbinates present boggy and erythematous Face and sinus: Yes sinuses nontender Mouth: moist mucous membranes Throat: Yes postnasal drainage Resp Effort & Inspection: normal respiratory effort and able to speak in complete sentences Auscultation: clear to auscultation bilaterally, no crackles, no rales, no rhonchi and no wheezes Cardio Heart sounds: S1 normal heart sound present and S2 normal heart sound present Neuro General: patient oriented x3 Assessment & Plan Assessment & Plan (1) Acute respiratory disease: Code(s): J06.9 - Acute upper respiratory infection, unspecified Plan: Culture for SARs collected PCP ordered Chest Xray. Abx ordered. Medications: New azithromycin 500 mg PO DAILY 3 tabs 0RF 3 days J06.9 - Acute upper respiratory infection, unspecified Coding Level of Care Code Est Pt Level 4 (94311) Diagnoses Acute respiratory disease J06.9 Time Spent (min) 20
== END 2024-04-10 10:30 | disposition home or self-care (01) ==
PROVIDERS: PCP Physician Assistant; Visit Provider Nurse Practitioner Family
DX: J06.9 Acute upper respiratory infection, unspecified (principal)

== ENCOUNTER 2024-04-10 08:41 | Outpatient (REF) | payer BC, SELFPAY ==
--- NOTE | ~2024-04-10 | XR_ITS ---
EXAMINATION: XR CHEST 2 VIEWS HISTORY: R05.9 - Cough, unspecified COMPARISON: Comparison is made with the prior examination dated 08/17/2023. FINDINGS: PA and lateral views of the chest are submitted. The lungs are expanded and clear. The previously seen right upper lobe pneumonia has resolved. There is no pleural effusion, pneumothorax, or pulmonary vascular congestion. The heart is normal in size. The bones are intact. XR/XR chest 2V IMPRESSION: No acute cardiopulmonary abnormality. The previously seen right upper lobe pneumonia has resolved. Electronically signed by: Hudson Gloria MD 04/10/2024 11:50 AM EST
[2024-04-10 14:34] LABS: Influenza A PCR POSITIVE (Negative); Influenza B PCR NEGATIVE (Negative); Resp Syncy Virus RNA Qual PCR NEGATIVE (Negative); SARS COV2 PCR INHOUSE NEGATIVE (Negative)
== END 2024-04-10 08:42 | disposition home or self-care (01) ==
LOC: HO.HMGCX 08:41
PROVIDERS: PCP Physician Assistant; Visit Provider Physician Assistant
DX: J06.9 Acute upper respiratory infection, unspecified (principal); R05.9 Cough, unspecified; R09.89 Other specified symptoms and signs involving the circulatory and respiratory systems
CPT/HCPCS: 0241U; 71046

== ENCOUNTER → 2024-04-10 09:56 | Outpatient (BNV) | payer BC, SELFPAY | PROVIDERS: PCP Physician Assistant; Visit Provider Radiology Diagnostic Radiology | DX: R05.9 Cough, unspecified (principal) | CPT/HCPCS: 71046 ==

== ENCOUNTER 2024-05-25 09:24 | Outpatient (AMB) | payer BC, SELFPAY ==
[2024-05-25 09:35] VITALS: BP 122/78; PULSE 82; O2SAT 98; BMI 35.3
--- NOTE | 2024-05-25 09:35 | MHC.PC.OV ---
Vital Signs 05/25/24 09:35 Height 5 ft 1 in Weight 187 lb BMI 35.3 BP 122/78 Blood Pressure Location Lt brachial Position Sitting Pulse 82 Pulse Source Pulse Oximeter Pulse Oximetry (%) 98 Oxygen Delivery Method Room Air Intake Visit Reasons: follow up weight check Dry Room Operator Required: No Accompanied by: Self / Same As Patient Allergies pecan nut Allergy (Verified 05/25/24 09:45) Anaphylaxis walnut Adverse Reaction (Verified 05/25/24 09:45) swollen throat Medication List - Last Reconciled 05/25/24 by Cheo Patterson PA-C albuterol sulfate 90 mcg/actuation 1 inh inhalation QID PRN 30 days ergocalciferol (vitamin D2) 1,250 mcg PO QWEEK 12 weeks losartan 50 mg PO DAILY 90 days metronidazole 1% (Metrogel) 1 appl topical DAILY 30 days montelukast (Singulair) 10 mg PO DAILY 90 days naproxen 500 mg PO BID 30 days sennosides (senna) 17.2 mg PO BEDTIME tirzepatide (weight loss) (Zepbound) 7.5 mg (0.5 mL) subcut QWEEK 4 weeks ursodiol 300 mg PO DAILY 30 days Tobacco use date assessed: 05/25/24 Dental Screening Dental Screen Date: 05/25/24 Did you have a dental visit in the last 12 months?: Yes Did you have a dental problem in the last 6 months where you did not have access to dental care?: No Was dental information given to patient?: Patient has dentist HPI follow up weight check HPI Details Patient is a 43-year-old female here today for has a..? Patient has a past medical history significant exercise-induced asthma hypertension, obesity. She continues to work full-time at a [employer] and has an autistic son whom she takes care of his well. -apneic episodes: she reports her has been tells her she snores loudly and stops breathing at night. She is concerned about obstructive sleep apnea. She has a scheduled sleep study test in June .. Class 2 obesity: We have started a GLP 1 to help her with both her weight and her obstructive sleep apnea concerns to which she has been able to lose 6 lb since last office visit. Starting weight was 193 lb, today's weight 187 lb.. .. ..Hypertriglyceridemia :? Most recent lipid panel showing triglycerides just above 300. PLAN:? Patient interested in medication for this at this time,? Will work on low cholesterol diet .. ..Asthma:? Has been well controlled with only p.r.n. use of her albuterol inhaler. ..HTN: Today's blood pressure in office acceptable, she has not been taking losartan as. [facility] Medical History (Updated 04/10/24 @ 09:55 by Nellie Rhodes NP) Acute respiratory disease Hypertension delivery delivered Surgical History Hx of tubal ligation Hx of section Family History Father Diabetes Alzheimers disease Mother Arthritis High blood pressure Vertigo Tubular adenoma of colon Paternal Grandmother History of breast cancer Maternal Grandmother History of breast cancer Social History Housing: Apartment Alcohol intake: current Alcohol intake frequency: holidays/special occasions only Patient Tobacco Use Status: Never used Tobacco Tobacco use type: Smokeless Tobacco e-Cigarette/Vaping Use: Former Use Second Hand Smoke Exposure: No service: No Current occupational status: unemployed Current occupation: stay at home Current occupational exposures/hazards: No Sexual orientation: Straight/Heterosexual Gender identity: Female Cognitive needs: No Hearing needs: No Vision needs: Yes Female Reproductive History Menstrual Age of Menarche: 11 Questionnaire PHQ-9 Over the last 2 weeks, how often have you been bothered by any of the following problems? 1. Little interest or pleasure in doing things: not at all 2. Feeling down, depressed, or hopeless: not at all 3. Trouble falling or staying asleep, or sleeping too much: not at all 4. Feeling tired or having little energy: several days 5. Poor appetite or overeating: more than half the days 6. Feeling bad about yourself - or that you are a failure or have let yourself or your family down: several days 7. Trouble concentrating on things, such as reading the newspaper or watching television: not at all 8. Moving or speaking so slowly that other people could have noticed. Or the opposite - being so fidgety or restless that you have been moving around a lot more than usual: not at all 9. Thoughts that you would be better off or of hurting yourself in some way: not at all Total score: 4 Depression Screening Interpretation: Positive Depression Screening Follow-up: Existing condition Depression Screening Done: Yes 41756 - PHQ-9 Billing: Yes Source: Developed by Drs. Hudson Pinon, Kathy Forde, Jasper Palomo and colleagues, with an educational dorota from [employer]. Thrive Questionnaire Date Thrive assessed: 05/25/24 I am a: Patient What is your living situation today?: I have a steady place to live Within the past 12 months, did the food you bought not last and you didn't have the money to get more?: Never true Within the past 12 months, did you worry whether your food would run out before you got money to buy more?: Never true Do you have trouble paying for medicines?: No Do you have trouble getting transportation to medical appointments?: No Do you have trouble paying your heating and electricity bill?: No Do you have trouble taking care of your child, family member or friend?: No Do you have trouble with day-to-day activities such as bathing, preparing meals, shopping, managing finances, etc.?: No Are you currently unemployed and looking for a job?: No Are you interested in more education?: No Please select the resources that you would like help with: None Currently or been in a relationship where the following occur: No concerns reported THRIVE Score: 0 AUDIT C Alcohol Use Questionnaire (AUDIT-C) 1. How often do you have a drink containing alcohol?: Monthly or less 2. How many drinks containing alcohol do you have on a typical day when you are drinking?: 1 or 2 3. How often do you have six or more drinks on one occasion?: Never Total Score: 1 SHYANNE-7 AMB Questionnaire SHYANNE-7 Date SHYANNE - 7 assessed: 05/25/24 Feeling nervous, anxious, or on edge: 0 = Not at all Not being able to stop or control worryin = Not at all Worrying too much about different things: 0 = Not at all Trouble relaxin = Not at all Being so restless that it is hard to sit still: 0 = Not at all Becoming easily annoyed or irritable: 0 = Not at all Feeling afraid as if something awful might happen: 0 = Not at all Total SHYANNE-7 score (0-4 normal; 5-9 mild; 10-14 moderate; 15-21 severe): 0 Source: Developed by Drs. Hudson Pinon, Kathy Forde, Jasper Palomo and colleagues, with an educational dortoa from [employer]. SHYANNE-7 Assessment Billing SHYANNE-7 Assessment Tool: SHYANNE-7 Assessment 89586 ACT Questionnaire In the past 4 weeks, how much of the time did your asthma keep you from getting as much done at work, school or at home?: None of the time During the past 4 weeks, how often have you had shortness of breath?: Not at all During the past 4 weeks, how often did your asthma symptoms wake you up at night or earlier than usual in the morning?: Not at all During the past 4 weeks, how often have you had to use your rescue inhaler or nebulizer medication?: Not at all How would you rate your asthma control during the past 4 weeks?: Completely controlled ACT Interpretation: Negative Score: 25 Review of Systems Const Denies headache(s) Eyes Denies loss of vision ENT Denies vertigo, Denies dizziness, Denies headache(s) and Denies sore throat Card Denies chest pain, Denies leg edema and Denies lightheadedness Resp Denies cough, Denies hemoptysis and Denies wheezing GI Denies abdominal pain, Denies melena, Denies constipation, Denies diarrhea and Denies vomiting Denies urinary frequency, Denies dysuria and Denies urinary urgency Musc Denies arthralgias, Denies joint swelling, Denies numbness and Denies tingling Neuro Denies Abnormal speech present, Denies behavioral changes, Denies vertigo, Denies dizziness, Denies headache(s), Denies loss of vision, Denies memory loss, Denies numbness and Denies tingling Psych Denies anxiety, Denies behavioral changes, Denies depression, Denies memory loss and Denies panic attacks Pavel/Lymph Denies easy bleeding and Denies easy bruising Aller/Immun Denies wheezing Physical exam (Primary Care) Vital Signs: Last Vital Signs Pulse 82 05/25/24 09:35 BP 122/78 05/25/24 09:35 Pulse Ox 98 05/25/24 09:35 Oxygen Delivery Method Room Air 05/25/24 09:35 BMI result Body Mass Index 35.3 BMI Assessment/Plan discussion: High BMI High, discussed plan: lifestyle, weight reduction, dietary and physical activity Tobacco/Smoking Status: Tobacco use Status Tobacco use date assessed 05/25/24 05/25/24 09:41 Patient Tobacco Use Status Never used Tobacco 05/25/24 09:41 Tobacco use type Smokeless Tobacco 05/25/24 09:41 e-Cigarette/Vaping Use Former Use 05/25/24 09:41 PHQ-9: PHQ-9 Score PHQ-9: Total score 4 05/25/24 09:48 Depression Screening Interpretation: Positive Depression Screening Follow-up: Existing condition Thrive Assessment: Date of Thrive Assessment Date Thrive assessed 05/25/24 05/25/24 09:41 Currently or been in a relationship where the following occur: No concerns reported Const General: healthy appearing, no acute distress, alert and awake Nutritional Appearance: well nourished Orientation/consciousness: oriented to person, oriented to place and oriented to time HENMT Ears: TM's normal bilaterally General nose exam: Normal nasal mucous membranes and turbinates present Eyes Conjunctivae: conjunctivae normal Sclerae: sclerae normal Pupils: Equal, round and reactive pupils present Neck Neck: Yes no lymphadenopathy and Yes no JVD Thyroid: Thyroid normal Carotids: no bruits Resp Effort & Inspection: normal respiratory effort and not tachypneic Auscultation: no crackles, no rales, no rhonchi and no wheezes Cardio Rate: regular rate Rhythm: regular rhythm Heart sounds: no murmurs and normal S1 and S2 GI Palpation (GI): Soft to palpation, nontender, no hepatomegaly and no splenomegaly Auscultation: normal bowel sounds Skin General skin exam: no rashes or lesions noted and dry skin Neuro General: oriented to person, oriented to place and oriented to time Cranial nerves: Yes Equal, round and reactive pupils present Speech: No Abnormal speech present Gait exam (Neuro): Normal gait present Motor exam (neuro): no tremor noted Extrem Right upper extremity: full ROM Left upper extremity: full ROM Right lower extremity: full ROM; no edema Left lower extremity: full ROM; no edema Psych Mental Status: mental status grossly normal Speech and movement: Normal speech and movement present Affect: normal affect Attitude: cooperative Thought process: Normal thought process present Coding Level of Care Code Est Pt Level 4 (13614) Diagnoses Essential hypertension I10 Hypertension type: essential hypertension Witnessed apneic spells R06.81 Class 2 obesity E66.812 Cervical cancer screening Z12.4 Additional Codes SHYANNE-7 Assessment Billing - SHYANNE-7 Assessment Tool: SHYANNE-7 Assessment 31019 ([id number]) PHQ-9 - 26639 - PHQ-9 Billing: Yes ([id number]) Asthma Control Questionnaire - ACT Interpretation: Negative ([id number]) Assessment & Plan Assessment & Plan (1) HTN (hypertension): Code(s): I10 - Essential (primary) hypertension Category: Medical Qualifiers: Hypertension type: essential hypertension Qualified Code(s): I10 - Essential (primary) hypertension Plan: Blood pressure acceptable today in office. Has not been taking losartan 50 mg as she felt lightheaded taking this medication. She will monitor blood pressure at home with goal blood pressure to be below 140/90. She will portal message or call back if blood pressures are above 140 and will restart losartan 25 mg. (2) Witnessed apneic spells: Code(s): R06.81 - Apnea, not elsewhere classified Category: Medical Plan: Continues to have apneic episodes and snoring at night.. Has scheduled sleep apnea test next month. (3) Class 2 obesity: Code(s): E66.812 - Obesity, class 2 Category: Medical Plan: Has lost weight since starting GLP 1. Unfortunately not able to be physically active due to time constraints due to her job.. Patient does understand her BMI is over 35 and will try to work on being more physically active and adapt to better eating habits to reduce her weight. She has reduced a lot of her calorie intake and sugary drinks though has not been able to lose much weight. (4) Cervical cancer screening: Code(s): Z12.4 - Encounter for screening for malignant neoplasm of cervix Category: Medical Plan: Interested in reestablishing care with [facility] [employer] and getting Pap screening Orders: Referrals PHARMACY ANCILLARY Referral Z12.4 - Encounter for screening for malignant neoplasm of cervix Medications: On Hold losartan Hold Comment: Doctor's Order 50 mg PO DAILY 90 days 90 tabs 1RF I10 - Essential (primary) hypertension
== END 2024-05-25 10:00 | disposition home or self-care (01) ==
LOC: HO.HMCH 09:25
PROVIDERS: PCP Physician Assistant; Visit Provider Physician Assistant
DX: I10 Essential (primary) hypertension (principal); R06.81 Apnea, not elsewhere classified; E66.812 Obesity, class 2; Z68.35 Body mass index [BMI] 35.0-35.9, adult

== ENCOUNTER → 2024-05-25 09:24 | Outpatient (BNVA) | payer BC, SELFPAY | PROVIDERS: PCP Physician Assistant; Visit Provider Physician Assistant | DX: I10 Essential (primary) hypertension (principal); R06.81 Apnea, not elsewhere classified; E66.812 Obesity, class 2; Z68.35 Body mass index [BMI] 35.0-35.9, adult; J45.990 Exercise induced bronchospasm | CPT/HCPCS: 96127; 96160 ==

== ENCOUNTER → 2024-06-22 12:42 | Outpatient (REF) | payer BC, SELFPAY | LOC: HO.SL 12:42 | PROVIDERS: PCP Physician Assistant; Visit Provider Physician Assistant | DX: G47.33 Obstructive sleep apnea (adult) (pediatric) (principal) | CPT/HCPCS: 95806 ==

== ENCOUNTER 2025-01-05 12:46 | Outpatient (AMB) | payer BC, SELFPAY ==
--- NOTE | 2025-01-05 12:55 | A.OFFPC_ITS ---
Vital Signs 01/05/25 12:56 Height 5 ft 1 in Weight 188 lb BMI 35.5 BP 138/90 H Blood Pressure Location Lt brachial Position Sitting Pulse 91 Pulse Source Pulse Oximeter Temp 97.1 F Temp Source Temporal Artery Scan Pulse Oximetry (%) 98 Oxygen Delivery Method Room Air Intake Visit Reasons: needs dental work, BP was elevated Intake Note: Patient is here for a Pre-op for Dental Precedure scheduled with Dr Musa ([facility]) on unknown. Ground Support Equipment Assembler Required: No Grinding Room Supervisor: Not Required per policy Accompanied by: Self / Same As Patient Allergies tirzepatide (From [facility] [place]) Allergy (Severe, Verified 01/05/25 13:05) Depression pecan nut Allergy (Verified 01/05/25 13:05) Anaphylaxis walnut Adverse Reaction (Verified 01/05/25 13:05) swollen throat Medication List - Last Reconciled 01/05/25 by Joshua Metcalf MD albuterol sulfate 90 mcg/actuation 1 inh inhalation QID PRN 30 days ergocalciferol (vitamin D2) 1,250 mcg PO QWEEK 12 weeks losartan 50 mg PO DAILY 90 days Held on 05/25/24. Instructions: Doctor's Order metronidazole 1% (Metrogel) 1 appl topical DAILY 30 days montelukast (Singulair) 10 mg PO DAILY 90 days naproxen 500 mg PO BID 30 days sennosides (senna) 17.2 mg PO BEDTIME ursodiol 300 mg PO DAILY 30 days Tobacco use date assessed: 01/05/25 Dental Screening Dental Screen Date: 05/25/24 HPI HPI Comments History of Present Illness Details The patient is a 44-year-old female presenting with elevated blood pressure readings during a visit to the dentist. She was referred to us for better control of Blood pressure prior to dental procedure. The patient has a history of essential hypertension, currently managed with losartan, but recent readings have been elevated, with measurements of 144/110 mmHg and 164/109 mmHg noted during a dental visit, leading to the postponement of a procedure. She experiences symptoms such as headaches and chest pain when her blood pressure is elevated. The patient also has a history of asthma, for which she uses an inhaler, and she reports needing a new prescription for it. The patient is classified as obese, with a current weight of 188 pounds and a height of 5'1 , and she has been previously prescribed Zepbound for weight management, which was discontinued due to exacerbation of depressive symptoms. She reports regaining weight after stopping the medication. The patient has been diagnosed with prediabetes and hepatic steatosis, necessitating dietary modifications to manage these conditions. She also has a history of cholelithiasis, which causes abdominal pain when consuming red meat, leading her to reduce intake of such foods. The patient suffers from constipation and is on medication to manage this condition. [facility] Medical History (Updated 01/05/25 @ 13:29 by Joshua Metcalf MD) Acute respiratory disease Hypertension delivery delivered Surgical History Hx of tubal ligation Hx of section Family History Father Diabetes Alzheimers disease Mother Arthritis High blood pressure Vertigo Tubular adenoma of colon Paternal Grandmother History of breast cancer Maternal Grandmother History of breast cancer Social History Housing: Apartment Alcohol intake: current Alcohol intake frequency: holidays/special occasions only Patient Tobacco Use Status: Never used Tobacco Tobacco use type: Smokeless Tobacco e-Cigarette/Vaping Use: Former Use Second Hand Smoke Exposure: No service: No Current occupational status: unemployed Current occupation: stay at home Current occupational exposures/hazards: No Sexual orientation: Straight/Heterosexual Gender identity: Female Cognitive needs: No Hearing needs: No Vision needs: Yes Female Reproductive History Menstrual Age of Menarche: 11 Questionnaire Thrive Questionnaire Date Thrive assessed: 05/25/24 SHYANNE-7 AMB Questionnaire SHYANNE-7 Date SHYANNE - 7 assessed: 05/25/24 Source: Developed by Drs. Hudson Pinon, Kathy Forde, Jasper Palomo and colleagues, with an educational dorota from [email or web address]. Review of Systems Const Details: Positives besides what was mentioned in HPI are in BOLD Constitutional: No Weight Change, No Fever, No Chills, No Night Sweats, No Fatigue, No Malaise ENT/Mouth: No Hearing Changes, No Ear Pain, No Nasal Congestion, No Sinus Pain, No Hoarseness, No sore throat, No Rhinorrhea, No Swallowing Difficulty Eyes: No Eye Pain, No Swelling, No Redness, No Foreign Body, No Discharge, No Vision Changes Cardiovascular: No Chest Pain, No SOB, No PND, No Dyspnea on Exertion, No Orthopnea, No Claudication, No Edema, No Palpitations Respiratory: No Cough, No Sputum, No Wheezing, No Smoke Exposure, No Dyspnea Gastrointestinal: No Nausea, No Vomiting, No Diarrhea, No Constipation, No Pain, No Heartburn, No Anorexia, No Dysphagia, No Hematochezia, No Melena, No Flatulence, No Jaundice Genitourinary: No Dysmenorrhea, No DUB, No Dyspareunia, No Dysuria, No Urinary Frequency, No Hematuria, No Urinary Incontinence, No Urgency, No Flank Pain, No Urinary Flow Changes, No Hesitancy Musculoskeletal: No Arthralgias, No Myalgias, No Joint Swelling, No Joint Stiffness, No Back Pain, No Neck Pain, No Injury History Skin: No Skin Lesions, No Pruritis, No Hair Changes, No Breast/Skin Changes, No Nipple Discharge Neuro: No Weakness, No Numbness, No Paresthesias, No Loss of Consciousness, No Syncope, No Dizziness, No Headache, No Coordination Changes, No Recent Falls Psych: No Anxiety/Panic, No Depression, No Insomnia, No Personality Changes, No Delusions, No Rumination, No SI/HI/AH/VH, No Social Issues, No Memory Changes, No Violence/Abuse Hx., No Eating Concerns Heme/Lymph: No Bruising, No Bleeding, No Transfusions History, No Lymphadenopathy Endocrine: No Polyuria, No Polydipsia, No Temperature Intolerance Physical exam (Primary Care) Vital Signs: Last Vital Signs Temp 97.1 F 01/05/25 12:56 Pulse 91 01/05/25 12:56 BP 138/90 H 01/05/25 12:56 Pulse Ox 98 01/05/25 12:56 Oxygen Delivery Method Room Air 01/05/25 12:56 BMI result Body Mass Index 35.5 Tobacco/Smoking Status: Tobacco use Status Tobacco use date assessed 01/05/25 01/05/25 13:06 Patient Tobacco Use Status Never used Tobacco 01/05/25 13:06 Tobacco use type Smokeless Tobacco 01/05/25 13:06 e-Cigarette/Vaping Use Former Use 01/05/25 13:06 Thrive Assessment: Date of Thrive Assessment Date Thrive assessed 05/25/24 01/05/25 13:06 Const Other: Pertinent findings are in BOLD GENERAL APPEARANCE NAD, activity normal for age, well developed/ well nourished, no cyanosis, pallor, or diaphoresis. EYES lids/conjunctiva normal. EARS/NOSE/THROAT Mucous membranes moist, nares normal, lips/teeth normal uvula midline without oral pharyngeal erythema, exudate or swelling TMs normal bilaterally. No lymphangitis/lymphedema. HEAD/NECK normocephalic atraumatic, no facial trauma, neck is supple. RESPIRATORY respiratory effort normal, speaks in full sentences, no tripod position, no accessory muscle use. Lungs clear to auscultation without rhonchi, wheezes, rales CARDIAC Regular rate and rhythm, no edema. ABDOMINAL Soft, ND/NT. No evidence of fluid wave. No pulsatile masses on exam, rebound tenderness, Rosas sign or pain over Mcburney's point. MUSCLES/EXTREMITIES No abnormal range of motion, no swelling. SKIN Warm, pink and dry. No rashes, dermatoses, petechiae or lesions. NEUROLOGICAL Speech is clear and appropriate. Normal level of consciousness. Gait and coordination are normal. 5/5 strength in all extremities. PSYCH Normal mood and affect. Judgement/competence is appropriate Coding Level of Care Code Est Pt Level 4 (65473) Diagnoses Healthcare maintenance Z00.00 Essential hypertension I10 Hypertension type: essential hypertension Class 2 obesity due to excess calories without serious comorbidity with body ma ss index (BMI) of 35.0 to 35.9 in adult E66.09; Z68.35 Obesity type: due to excess calories Obesity classification: adult class 2 (BMI 35 - 39.9) Serious obesity comorbidity presence: without serious comorbidity Body mass index: BMI 35.0-35.9 Hepatic steatosis K76.0 Other constipation K59.09 Constipation type: other constipation type Time Spent (min) 30 Assessment & Plan Assessment & Plan (1) Healthcare maintenance: Code(s): Z00.00 - Encounter for general adult medical examination without abnormal findings Category: Medical Plan: Ordered labs prior to next visit with Antonio. (2) HTN (hypertension): Code(s): I10 - Essential (primary) hypertension Category: Medical Qualifiers: Hypertension type: essential hypertension Qualified Code(s): I10 - Essential (primary) hypertension Plan: - Initiate amlodipine for better blood pressure control, considering the patient's asthma and potential interactions with beta-blockers. - Monitor blood pressure regularly to assess the effectiveness of the new medication regimen. - Metoprolol partially contraindicated as the paient has Asthma and it might cause her shortness of breath. (3) Obese: Code(s): E66.9 - Obesity, unspecified Category: Medical Qualifiers: Obesity type: due to excess calories Obesity classification: adult class 2 (BMI 35 - 39.9) Serious obesity comorbidity presence: without serious comorbidity Body mass index: BMI 35.0-35.9 Qualified Code(s): E66.09 - Other obesity due to excess calories; Z68.35 - Body mass index [BMI] 35.0-35.9, adult Plan: - Discuss dietary changes and lifestyle modifications to aid in weight management, emphasizing long-term changes over medication reliance. (4) Hepatic steatosis: Code(s): K76.0 - Fatty (change of) liver, not elsewhere classified Category: Medical Plan: - Advise on dietary changes to prevent further liver damage, including reducing intake of high-fat foods and sugars. (5) Constipation: Code(s): K59.00 - Constipation, unspecified Category: Medical Qualifiers: Constipation type: other constipation type Qualified Code(s): K59.09 - Other constipation Plan: - Continue current medication for constipation and explore dietary changes to improve gastrointestinal health. Plan I discussed with the patient the importance of managing her blood pressure effectively, considering her asthma, and the potential interactions with beta- blockers, leading to the decision to start amlodipine. We also talked about the need for dietary changes to manage her prediabetes and hepatic steatosis, emphasizing the reduction of sugar intake and avoidance of high fructose corn syrup. Additionally, we addressed her weight management, focusing on long-term lifestyle changes rather than medication reliance, and discussed the DASH diet as a potential option for managing hypertension. Orders: Orders TSH reflex Free T4 Today Z00.00 - Encounter for general adult medical examination without abnormal findings Hemoglobin A1c Today Z00.00 - Encounter for general adult medical examination without abnormal findings Microalbumin, Random (w Creat) Today Z00.00 - Encounter for general adult medical examination without abnormal findings Complete Blood Count no Diff Today Z00.00 - Encounter for general adult medical examination without abnormal findings Comprehensive Met. Panel Today Z00.00 - Encounter for general adult medical examination without abnormal findings Vitamin D 25-OH Total Today Z00.00 - Encounter for general adult medical examination without abnormal findings Lipid Panel Today Z00.00 - Encounter for general adult medical examination with out abnormal findings Medications: New amlodipine 5 mg PO DAILY 90 tabs 3RF
[2025-01-05 12:56] VITALS: BP 138/90; PULSE 91; TEMP 36.2; O2SAT 98; BMI 35.5
--- OUTSIDE RECORDS SUMMARY | 2025-01-05 14:42 | XMS_ITS | Clinical Summary ---
Author Organization [facility] Address [address] [place] [id number] Phone Care Team Providers Care Sales Activity Manager Name Role Phone Cheo Patterson Primary Care Provider + Allergies Active Allergy Reactions Criticality Noted Date Comments Lisinopril Cough 08/01/2021 Pecan Nut 01/29/2021 [place] Swelling,Throat Tightness Medium 01/24/2021 Medications albuterol 90 mcg/actuation inhaler Inhale 2 puffs into the lungs every 6 (six) hours as needed. Active naproxen (NAPROSYN) 500 MG tablet Take 500 mg by mouth 2 (two) times a day with meals. Active losartan (COZAAR) 25 MG tablet Take 25 mg by mouth daily. Active ergocalciferol (DRISDOL) 50,000 unit capsuleIndications :Vitamin D insufficiency Take 1 capsule (50,000 Units total) by mouth once a week. 12 capsule 1 2 Active Active Problems Problem Noted Date Diagnosed Date Class 2 obesity due to exces s calories without serious comorbidity with body mass index (BMI) of 35.0 to 35.9 in adult 08/01/2021 Assessment & Plan (02/28/2022 5:55 PM EST): Congratulations on losing 1 pound from 190 down to 189 lbs-keep it off. Continue diligent portion control. Limit concentrated sugars, saturated fats and calories in the diet. Keep well-hydrated. If unable to achieve expected goal consider formal dietary/nutritional support. Assessment & Plan (08/23/2021 5:35 PM EDT): Congratulations on losing 5 pounds from 195 down to 190 lbs-keep it off. Continue diligent portion control. Limit concentrated sugars, saturated fats and calories in the diet. Keep well-hydrated. If unable to achieve expected goal consider formal dietary/nutritional support. Other insomnia 08/01/2021 Assessment & Plan (02/02/2022 10:16 AM EST): Principles of sleep hygiene reviewed and strongly encouraged. Listen to relaxation tapes every time she wakes up and prior to bed rest. She may benefit from taking melatonin 5 mg nightly. Optimize stress management strategies. Continue watchful diet to decrease her body weight and reduce the risk of obstructive sleep apnea. If symptoms persist or do not improve with above strategies after diligent trial of 3-4 months may need to consider formal sleep study particularly if waking up gasping for air. Assessment & Plan (08/23/2021 5:37 PM EDT): Principles of sleep hygiene reviewed and strongly encouraged. Listen to relaxation tapes every time she wakes up and prior to bed rest. She may benefit from taking melatonin 5 mg nightly. Optimize stress management strategies. Continue watchful diet to decrease her body weight and reduce the risk of obstructive sleep apnea. If symptoms persist or do not improve with above strategies after diligent trial of 3-4 months may need to consider formal sleep study particularly if waking up gasping for air. Bilateral carpal tunnel syndrome 01/29/2021 Assessment & Plan (02/28/2022 5:56 PM EST): Joint protection, energy conservation techniques reviewed and strongly encouraged. Continue using right wrist splint for nighttime and extended activities-call if needs contralateral wrist splint or formal hand therapy. Assessment & Plan (08/01/2021 10:30 AM EDT): Joint protection, energy conservation techniques reviewed and strongly encouraged. Start using right wrist splint for nighttime and extended activities-call if needs contralateral wrist splint or formal hand therapy. Assessment & Plan (02/01/2021 4:22 PM EST): Joint protection, energy conservation techniques reviewed and strongly encouraged. Start using right wrist splint for nighttime and extended activities-call if needs contralateral wrist splint or formal hand therapy. MONI positive 01/29/2021 Assessment & Plan (02/28/2022 5:54 PM EST): I reviewed with Edvin that low positive MONI in itself does not make any diagnosis however may be a risk factor for developing one of the systemic rheumatic diseases associated with positive MONI such as systemic lupus erythematosus, Sjogren's syndrome, mixed connective tissue disease, rheumatoid arthritis, polymyositis, dermatomyositis etc. Based on the labs from initial visit in January 2021 there are no additional concerning findings except for low vitamin D that she is taking to replace the insufficiency. She is educated to continue healthful lifestyle. Avoid sunburn. Adhere to age-appropriate screenings and preventive strategies. Provided there are no abnormalities on ordered labs and no worsening in her clinical status I have asked her to return for a follow-up in 6 months. Assessment & Plan (08/23/2021 5:35 PM EDT): I reviewed with Edvin that low positive MONI in itself does not make any diagnosis however may be a risk factor for developing one of the systemic rheumatic diseases associated with positive MONI such as systemic lupus erythematosus, Sjogren's syndrome, mixed connective tissue disease, rheumatoid arthritis, polymyositis, dermatomyositis etc. Based on the labs from initial visit in January 2021 there are no additional concerning findings except for low vitamin D that she is taking to replace the insufficiency. She is educated to provide healthful lifestyle. Avoid sunburn. Adhere to age-appropriate screenings and preventive strategies. Provided there are no abnormalities on ordered labs and no worsening in her clinical status I have asked her to return for a follow-up in 6 months. Assessment & Plan (02/01/2021 4:24 PM EST): I reviewed with Edvin that low positive MONI in itself does not make any diagnosis however may be a risk factor for developing one of the systemic rheumatic diseases associated with positive MONI such as systemic lupus erythematosus, Sjogren's syndrome, mixed connective tissue disease, rheumatoid arthritis, polymyositis, dermatomyositis etc. I took the liberty of getting a new set of labs to make sure that there are no additional abnormalities of concern. She is educated to provide healthful lifestyle. Avoid sunburn. Adhere to age-appropriate screenings and preventive strategies. Provided there are no abnormalities on ordered labs and no worsening in her clinical status I have asked her to return for a follow-up in 6 months. Chronic pain of both knees 01/29/2021 Assessment & Plan (02/01/2021 4:22 PM EST): Avoid stair climbing, squatting, kneeling, heavy lifting. Work on reducing body weight as close as possible to ideal range for her height. Well fitting, supportive shoes. Gentle, regular exercises to strengthen quadriceps muscle after warm pack or warm shower. Topical cream versus patch as needed. Call if problems or questions. Pain in both hands 01/29/2021 Assessment & Plan (02/01/2021 4:19 PM EST): Joint protection, energy conservation techniques and gentle, regular exercise routine reviewed and strongly encouraged. Use warm pack prior to each exercise session. Avoid falls, injuries, overuse. She may benefit from topical cream such as Arnica, Biofreeze, Voltaren versus medicated patches such as Salonpas or IcyHot patch 2-3 times daily if needed at bedtime Hair loss 01/29/2021 Assessment & Plan (08/23/2021 5:38 PM EDT): Well-balanced nutritionally diet, rich in vitamins from group B. Use gentle hair care products such as baby shampoo versus vitamin B enriched formulas. Assessment & Plan (02/01/2021 4:20 PM EST): Well-balanced nutritionally diet, rich in vitamins from group B, a and check thyroid function to make sure that there is no need for thyroid replacement therapy. Weight gain 01/29/2021 Assessment & Plan (02/01/2021 4:17 PM EST): Encouraged to monitor her diet for calories, cholesterol, saturated fats and sugar. TSH requested to make sure that under function does not contribute Vitamin D insufficiency 01/29/2021 Assessment & Plan (02/28/2022 5:55 PM EST): Continue weekly supplementation 50,000 units every 7 days to keep vitamin D in optimal range: 40-45 ng/ml. Assessment & Plan (08/01/2021 10:31 AM EDT): Serum level requested to make sure that she does not require supplementation to keep vitamin D in optimal range: 40-45 ng/ml. Assessment & Plan (02/01/2021 4:18 PM EST): Serum level requested to make sure that she does not require supplementation to keep vitamin D in optimal range: 40-45 ng/ml. Resolved Problems Problem Noted Date Diagnosed Date Resolved Date Class 2 obesity due to exces s calories without serious comorbidity with body mass index (BMI) of 36.0 to 36.9 in adult 02/01/2021 Assessment & Plan (02/01/2021 4:20 PM EST): Portion control. Limit concentrated sugars, saturated fats and calories in the diet. Keep well-hydrated. If unable to achieve expected goal consider formal dietary/nutritional support. Family History Medical History Relation Comments Alzheimer's disease Father Diabetes Father Arthritis Mother Hypertension Mother Vertigo Mother Relation Status Comments Father Mother Social History Tobacco Use Types Packs/Day Years Used Date Smoking Tobacco: Former Smokeless Tobacco: Never Tobacco Cessation:Counseling Given: Not Answered Education Answer Date Recorded Are you interested in more education? Not on marilynn e 07/11/2022 Are you concerned about learning? Not on file 07/11/2022 No 07/11/2022 No 07/11/2022 Digital Access Answer Date Recorded No 08/09/2022 No 08/09/2022 Reliable internet access at home? Not on file 08/09/2022 Device with a working camera? Not on file Comments Unknown Sex and Gender Information Value Date Recorded Sex Assigned at Not on file Legal Sex Female 11:47 AM EDT Gender Identity Not on file Sexual Orientation Not on file Last Filed Vital Signs Vital Sign Reading Time Taken Comments Blood Pressure 122/80 02/02/2022 9:43 AM EST Pulse 87 08/01/2021 10:00 AM EDT Temperature - - Respiratory Rate 16 08/01/2021 10:00 AM EDT Oxygen Saturation 98% 08/01/2021 10:00 AM EDT Inhaled Oxygen Concentration - - Weight 85.7 kg (189 lb) 02/02/2022 9:43 AM EST w ith shoes Height 154.9 cm (5' 1 ) 02/02/2022 9:43 AM EST Body Mass Index 35.71 02/02/2022 9:43 AM EST Plan of Treatment Health Maintenance Due Date Last Done Comments DEPRESSION SCREENING 1992 SMOKING Hx and SMOKELESS TOBACCO SCREENING 1993 HEPATITIS C SCREENING 1998 HIV ONE-TIME SCREENING (18-6 5 YEARS) 1998 PAP SMEAR 2001 MAMMOGRAM 2020 CREATININE LEVEL 02/02/2023 02/02/2022, 08/01/2021 POTASSIUM LEVEL 02/02/2023 02/02/2022, 08/01/2021 INFLUENZA VACCINE (#1) 2024 04/23/2020 COVID-19 VACCINE ( - 2024-2 6 season) 2024 05/13/2021, 07/24/2020, 06/26/2020 SCREENING FOR DIABETES 02/02/2025 02/02/2022 Adult Td,Tdap Booster 04/23/2030 04/23/2020 PNEUMOCOCCAL VACCINES (0-49 years) Aged Out 08/26/2021 No longer eligible b ased on patient's age to complete this topic HEPATITIS A VACCINES Aged Out No long er eligible based on patient's age to complete this topic HIB VACCINES Aged Out No longer eligi ble based on patient's age to complete this topic MENINGOCOCCAL VACCINES (ACWY) Aged Out No longer eligible based on patient's age to complete this topic MENINGOCOCCAL VACCINES (B) Aged Out N o longer eligible based on patient's age to complete this topic Medical Devices Not on file Procedures Procedure Name Priority Date/Time Associated Diagnosis Comments COMPREHENSIVE METABOLIC PANEL Routine 02/02/2022 10:29 AM EST MONI positive from Last 3 Months or Most Recently Relevant to Health Maintenance Results * (ABNORMAL) Comprehensive metabolic panel (02/02/2022 10:29 AM EST) SODIUM 140 133 - 146 mmol/L [facility] POTASSIUM 4.2 3.3 - 5.1 mmol/L [facility] CHLORIDE 106 96 - 108 mmol/L [facility] CO2 25 21 - 35 mmol/L [facility] BUN 10 6 - 19 mg/dL [facility] CREATININE 0.60 0.5 - 1.5 mg/dL [facility] GLUCOSE 107(H) 70 - 99 mg/dL [facility] ALBUMIN 4.2 3.9 - 4.8 g/dL [facility] TOTAL PROTEIN 7.1 6.5 - 8.0 g/dL [facility] CALCIUM 9.1 8.4 - 10.3 mg/dL [facility] ALKALINE PHOSPHATASE 96 39 - 117 U/L [facility] TOTAL BILIRUBIN 0.3 0.0 - 1.2 mg/dL [facility] AST 24 0 - 37 U/L [facility] ALT 21 0 - 40 U/L [facility] GLOBULIN 2.9 1 - 4.8 g/dL [facility] EGFR 116 >59 mL/min/1.7 3m2 [facility] Comment:Estimated glomerular filtration rate calculated using the CKD-EPI refit equation. ANION GAP 13 10 - 20 mmol/L [facility] Blood 02/02/2022 10:2 9 AM EST 02/02/2022 10:34 AM EST us Laila Sotelo MD LAB BLOOD ORDERABLES Fin al Result [facility] [address] [place] [address] from Last 3 Months or Most Recently Relevant to Health Maintenance Insurance [facility] ACO ACO ACO ACO ACO ACO ACO ACO ACO Care Teams Sales Activity Manager Relationship Specialty Start Date End Date Cheo Patterson PA [address] [place] [id number] PCP - General 10/23/20 Additional Source Comments The information contained in this document represents components of the legal health record. It is not the complete legal health record.[facility]
== END 2025-01-05 13:36 | disposition home or self-care (01) ==
LOC: HO.HMCH 12:47
PROVIDERS: PCP Physician Assistant; Visit Provider Internal Medicine
DX: Z00.00 Encounter for general adult medical examination without abnormal findings (principal); I10 Essential (primary) hypertension; E66.09 Other obesity due to excess calories; Z68.35 Body mass index [BMI] 35.0-35.9, adult; K76.0 Fatty (change of) liver, not elsewhere classified; K59.09 Other constipation

== ENCOUNTER 2025-01-11 09:45 | Outpatient (REF) | payer BC, SELFPAY ==
[2025-01-11 10:36] LABS: Hematocrit 41.5 % (37.0-47.0); Hemoglobin 13.7 g/dl (12.0-16.0); Mean Corpuscular HGB Conc 33.0 g/dl (31.0-35.0); Mean Corpuscular Hemoglobin 27.5 pg (27.0-33.0); Mean Corpuscular Volume 83.3 fL (80.0-98.0); NRBC Abs Auto 0.000 X10*3/uL (0.0-0.012); NRBC Pct Auto 0.0 /100WBC (0.0-0.2); Platelet Count 261 X10*3/uL (160-400); Red Blood Count 4.98 X10*6/uL (4.20-5.50); White Blood Count 8.0 X10*3/uL (4.8-10.8)
[2025-01-11 11:18] LABS: Alanine Aminotransferase 16 U/L (0-31); Albumin Level 4.3 g/dL (3.5-5.0); Alkaline Phosphatase 94 U/L (39-117); Anion Gap 9 (12-20); Aspartate Amino Transferase 25 U/L (5-31); Blood Urea Nitrogen 13 mg/dL (9-16); Calcium 8.7 mg/dL (8.4-10.2); Carbon Dioxide 25 mmol/L (22-29); Chloride 107 mmol/L (96-108); Cholesterol 166 mg/dL (<200); Estimated Glomerular Filt Rate > 60; HDL Cholesterol 31 mg/dL (>40); Potassium 4.1 mmol/L (3.3-5.1); Sodium 137 mmol/L (135-145); Total Protein 7.1 g/dL (6.5-8.0); Triglycerides 156 mg/dL (<150)
--- OUTSIDE RECORDS SUMMARY | 2025-01-11 11:28 | XMS_ITS | Clinical Summary ---
Author Organization [facility] Address [address] [place] [phone] Phone Care Team Providers Care Customer Care Voice Consultant Name Role Phone Cheo Patterson Primary Care Provider + Allergies Active Allergy Reactions Criticality Noted Date Comments Lisinopril Cough 08/01/2021 Pecan Nut 01/29/2021 [place] Swelling,Throat Tightness Medium 01/24/2021 Medications albuterol 90 [...] EST) SODIUM 140 133 - 146 mmol/L [facility] POTASSIUM 4.2 3.3 - 5.1 mmol/L [facility] CHLORIDE 106 96 - 108 mmol/L [facility] CO2 25 21 - 35 mmol/L [facility] BUN 10 6 - 19 mg/dL [facility] CREATININE 0.60 0.5 - 1.5 mg/dL [facility] GLUCOSE 107(H) 70 - 99 mg/dL [facility] ALBUMIN 4.2 3.9 - 4.8 g/dL [facility] TOTAL PROTEIN 7.1 6.5 - 8.0 g/dL [facility] CALCIUM 9.1 8.4 - 10.3 mg/dL [facility] ALKALINE PHOSPHATASE 96 39 - 117 U/L [facility] TOTAL BILIRUBIN 0.3 0.0 - 1.2 mg/dL [facility] AST 24 0 - 37 U/L [facility] ALT 21 0 - 40 U/L [facility] GLOBULIN 2.9 1 - 4.8 g/dL [facility] EGFR 116 >59 mL/min/1.7 3m2 [facility] Comment:Estimated glomerular filtration rate calculated using the CKD-EPI refit equation. ANION GAP 13 10 - 20 mmol/L [facility] Blood 02/02/2022 10:2 9 AM EST 02/02/2022 10:34 AM EST us Laila Sotelo MD LAB BLOOD ORDERABLES Fin al Result [facility] [address] [place] [address] from Last 3 Months or Most Recently Relevant to Health Maintenance Insurance [facility] ACO ACO ACO ACO ACO ACO ACO ACO ACO Care Teams Customer Care Voice Consultant Relationship Specialty Start Date End Date Cheo Patterson PA [address] [place] [id number] PCP - General 10/23/20 Additional Source Comments The information contained in this document represents components of the legal health record. It is not the complete legal health record.[facility]
[2025-01-11 11:53] LABS: Microalbum/Creatinine Ratio Ur 5.1 ug/mg cr (<30)
[2025-01-12 01:04] LABS: CT PCR Urine NOT DETECTED (Not Detect.); NG PCR Urine NOT DETECTED (Not Detect.)
== END 2025-01-11 09:46 | disposition home or self-care (01) ==
LOC: HO.LAB 09:45
PROVIDERS: Obstetrics & Gynecology; PCP Physician Assistant; Visit Provider Internal Medicine
DX: Z01.419 Encounter for gynecological examination (general) (routine) without abnormal findings (principal); Z00.00 Encounter for general adult medical examination without abnormal findings; Z13.6 Encounter for screening for cardiovascular disorders; Z13.1 Encounter for screening for diabetes mellitus; Z20.2 Contact with and (suspected) exposure to infections with a predominantly sexual mode of transmission; Z91.89 Other specified personal risk factors, not elsewhere classified; N94.10 Unspecified dyspareunia; Z80.3 Family history of malignant neoplasm of breast; Z98.51 Tubal ligation status
CPT/HCPCS: 36415; 80053; 80061; 82043; 82306; 82570; 83036; 84443; 85027; 87491; 87591

== ENCOUNTER 2025-01-11 10:15 | Outpatient (AMB) | payer BC, SELFPAY ==
--- NOTE | 2025-01-11 10:25 | MHC.OFFVIS ---
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 Complaining of dyspareunia over the last few months and decreased libido Last Pap/HPV was negative in 07/04 Last Mammogram was BI-RADS 1 in 02/05, next screening mammogram scheduled within few weeks The patient is elevated the risk of breast cancer , the patient was referred to Dr. Dowd recommended yearly MRI/mammogram six-month support but the patient had not had an MRI since then [facility] Medical History Acute respiratory disease Hypertension delivery delivered Surgical History Hx of tubal ligation Hx of section Family History Father Diabetes Alzheimers disease Mother Arthritis High blood pressure Vertigo Tubular adenoma of colon Paternal Grandmother History of breast cancer Maternal Grandmother History of breast cancer Social History Housing: Apartment Alcohol intake: current Alcohol intake frequency: holidays/special occasions only Patient Tobacco Use Status: Never used Tobacco Tobacco use type: Smokeless Tobacco e-Cigarette/Vaping Use: Former Use Second Hand Smoke Exposure: No Patient : No service: No Current occupational status: unemployed Current occupation: stay at home Current occupational exposures/hazards: No Sexual orientation: Straight/Heterosexual Gender identity: Female Cognitive needs: No Hearing needs: No Vision needs: Yes Female Reproductive History Menstrual Age of Menarche: 11 Date of last menstrual period: 01/02/25 control method: permanent sterilization Total pregnancies: 5 Full term: 3 Ab induced: 1 Ab spontaneous: 1 Date of last pap smear: 07/02/21 (negative pap smear, negative hpv ) Date of Mammogram: 02/02/24 (bi rad 1) Review of Systems Const All systems reviewed & are unremarkable except as noted in HPI and below Card Reports as per HPI Resp Reports as per HPI GI Reports as per HPI and Reports no additional complaints Reports as per HPI Physical Exam Vital Signs: Last Vital Signs BP 128/76 01/11/25 10:44 BMI result Body Mass Index 35.1 Const General: cooperative, healthy appearing and comfortable Chest Chest palpation & inspection: normal inspection of the chest and normal palpation of entire chest wall Breast/axilla inspection: normal inspection of the breasts and normal inspection of the axillae Breast/axilla palpation: normal palpation of the breasts, normal palpation of the axillae and no axillary lymphadenopathy Resp Effort & Inspection: normal respiratory effort Auscultation: clear to auscultation bilaterally Percussion: percussion normal Cardio Palpation: normal PMI Rate: regular rate Rhythm: regular rhythm Heart sounds: no murmurs and no rubs Peripheral pulses: Peripheral pulses 2+ throughout GI Inspection: Yes normal to inspection Palpation (GI): Soft to palpation, nontender, no guarding, not rigid and No hepatosplenomegaly present Percussion: Yes normal to percussion Auscultation: normal bowel sounds Rectal Exam - Female: deferred General: Yes bladder normal to palpation External Female Exam: No lesion Speculum Exam - Vagina: normal appearance of the vagina, normal palpation, normal vaginal discharge and not erythematous Speculum Exam - Cervix: normal appearance of the cervix and normal palpation Bimanual exam- vagina & uterus: normal bimanual exam, normal palpation, uterine size normal, bladder normal to palpation, consistency normal and normal palpation Bimanual Exam- Adnexa, other: normal adnexae, no masses and no tenderness Results AMB Urinalysis Automated WC UR Glucose Last Edit by Estephania Hoskins LPN on 01/11/25 11:49 UR Ketone Last Edit by Estephania Hoskins LPN on 01/11/25 11:49 UR Specific [place] 1.020 Last Edit by Estephania Hoskins LPN on 01/11/25 11:49 UR Blood Last Edit by Estephania Hoskins LPN on 01/11/25 11:49 UR Ph 6.0 Last Edit by Estephania Hoskins LPN on 01/11/25 11:49 UR Protein Last Edit by Estephania Hoskins LPN on 01/11/25 11:49 UR Nitrite Last Edit by Estephania Hoskins LPN on 01/11/25 11:49 UR Leukocytes Last Edit by Estephania Hoskins LPN on 01/11/25 11:49 Results Reviewed Results Reviewed: Laboratory Last Values Urine pH (Clinic) 6.0 01/11/25 11:47 Specific [place] (Clinic) 1.020 01/11/25 11:47 Assessment & Plan Assessment & Plan (1) Well woman exam: Code(s): Z01.419 - Encounter for gynecological examination (general) (routine) without abnormal findings Category: Medical Plan: Cotesting not indicated this. Screening Mammogram ordered. Counseled the patient about the recommended dietary allowance of 1000 mg of Calcium & 600 IU of vitamin D. The patient was instructed to perform monthly self-breast exams and to schedule an annual exam in a year; All questions answered and the patient verbalized understanding. Instructed the patient to schedule annual exam in a year (2) At high risk for breast cancer: Code(s): Z91.89 - Other specified personal risk factors, not elsewhere classified Category: Medical Plan: Screening mammogram scheduled within few weeks. Will order breast MRI and refer to Dr. Dowd for high-risk breast cancer status. All questions answered, the patient verbalized understanding (3) Dyspareunia, female: Code(s): N94.10 - Unspecified dyspareunia Category: Medical Plan: Discussed with the patient the possible causes of dyspareunia including but not limited to: bladder causes, cervical infections or vaginitis (infectious vs atrophic) , pelvic mass effect ( uterine or adnexal), causes and others. The workup includes but not limited to: Urine dip, GC/CG and pelvic US, Urine test , the patient was instructed to schedule appointment in 2 weeks for follow-up. Orders: Orders MR breast BI wo/w con Today Z80.3 - Family history of malignant neoplasm of breast US pelvic and transvaginal Today N94.10 - Unspecified dyspareunia CT NG by PCR Urine Today N94.10 - Unspecified dyspareunia Referrals General Surgery Referral Z91.89 - Other specified personal risk factors, not elsewhere classified Coding Level of Care Code Est Pt Level 3 (86462) Est Pt Prev Care 40-64y(37736) Diagnoses Well woman exam Z01.419 At high risk for breast cancer Z91.89 Dyspareunia, female N94.10
[2025-01-11 10:44] VITALS: BP 128/76; BMI 35.1
== END 2025-01-11 11:56 | disposition home or self-care (01) ==
LOC: HO.HWS 10:16
PROVIDERS: PCP Physician Assistant; Visit Provider Obstetrics & Gynecology
DX: Z01.419 Encounter for gynecological examination (general) (routine) without abnormal findings (principal); N94.10 Unspecified dyspareunia; Z91.89 Other specified personal risk factors, not elsewhere classified
CPT/HCPCS: 99213; 99396; 99459

== ENCOUNTER 2025-01-18 10:02 | Outpatient (REF) | payer BC, SELFPAY ==
--- OUTSIDE RECORDS SUMMARY | 2025-01-18 11:34 | XMS_ITS | Clinical Summary ---
Author Organization [facility] Address [address] [place] [address] Phone Care Team Providers Care Jetting Machine Operator Name Role Phone Cheo Patterson Primary Care Provider + Allergies Active Allergy Reactions Criticality Noted Date Comments Lisinopril Cough 08/01/2021 Pecan Nut 01/29/2021 [place] Swelling,Throat Tightness Medium 01/24/2021 Medications albuterol 90 [...] Date/Time Associated Diagnosis Comments COMPREHENSIVE METABOLIC PANEL (CMP) Routine 02/02/2022 10:29 AM EST MONI positive from Last 3 Months or Most Recently Relevant to Health Maintenance Results * (ABNORMAL) Comprehensive metabolic panel (02/02/2022 10:29 AM EST) SODIUM 140 133 - 146 mmol/L [facility] POTASSIUM 4.2 3.3 - 5.1 mmol/L [facility] CHLORIDE 106 96 - 108 mmol/L [facility] CO2 25 21 - 35 mmol/L [facility] BUN 10 6 - 19 mg/dL [facility] CREATININE 0.60 0.5 - 1.5 mg/dL [facility] GLUCOSE 107(H) 70 - 99 mg/dL [facility] ALBUMIN 4.2 3.9 - 4.8 g/dL [facility] TOTAL PROTEIN 7.1 6.5 - 8.0 g/dL [facility] CALCIUM 9.1 8.4 - 10.3 mg/dL [facility] ALKALINE PHOSPHATASE 96 39 - 117 U/L [facility] TOTAL BILIRUBIN 0.3 0.0 - 1.2 mg/dL [facility] AST 24 0 - 37 U/L [facility] ALT 21 0 - 40 U/L [facility] GLOBULIN 2.9 1 - 4.8 g/dL [facility] EGFR 116 >59 mL/min/1.7 3m2 [facility] Comment:Estimated glomerular filtration rate calculated using the CKD-EPI refit equation. ANION GAP 13 10 - 20 mmol/L [facility] Blood 02/02/2022 10:2 9 AM EST 02/02/2022 10:34 AM EST us Laila Sotelo MD LAB BLOOD BKR ORDERABLES Final Result [facility] [address] [place], [place] [id number] from Last 3 Months or Most Recently Relevant to Health Maintenance Insurance [facility] ACO ACO ACO ACO ACO ACO ACO ACO ACO Care Teams Jetting Machine Operator Relationship Specialty Start Date End Date Cheo Patterson PA [address] [place] [id number] PCP - General 10/23/20 Additional Source Comments The information contained in this document represents components of the legal health record. It is not the complete legal health record.[facility]
== END 2025-01-18 10:03 | disposition home or self-care (01) ==
LOC: HO.MAMMO 10:02
PROVIDERS: PCP Physician Assistant; Visit Provider Physician Assistant
DX: Z12.31 Encounter for screening mammogram for malignant neoplasm of breast (principal)
CPT/HCPCS: 77063; 77067

== ENCOUNTER → 2025-01-18 10:30 | Outpatient (BNV) | payer BC, SELFPAY | PROVIDERS: PCP Physician Assistant; Visit Provider Internal Medicine | DX: Z12.31 Encounter for screening mammogram for malignant neoplasm of breast (principal) | CPT/HCPCS: 77063; 77067 ==

== ENCOUNTER 2025-03-01 13:03 | Outpatient (REF) | payer BC, SELFPAY ==
--- NOTE | ~2025-03-01 | US_ITS ---
CLINICAL HISTORY: N94.10 - Unspecified dyspareunia US pelvis transabdominal and transvaginal with doppler interrogation Comparison: None Findings: Transabdominal scanning performed for overall anatomy. Transvaginal scanning performed for additional detail. Anteverted uterus 7.7 cm in length. Normal echotexture. No fibroids. Normal endometrium, 7 mm thickness. Right ovary normal, 3.6 cm. Normal color flow Left ovary normal, 4.3 cm. Normal color flow No free fluid Impression: 1. Unremarkable pelvic ultrasound This document has been electronically signed by: Tim Zapata MD on 03/01/2025 16:00:55
--- OUTSIDE RECORDS SUMMARY | 2025-03-01 16:58 | XMS_ITS | Clinical Summary ---
Author Organization [facility] Address [address] [place] [id number] Phone Care Team Providers Care Centrifugal Spinner Name Role Phone Cheo Patterson Primary Care Provider + Allergies Active Allergy Reactions Criticality Noted Date Comments Lisinopril Cough 08/01/2021 Pecan Nut 01/29/2021 [place] Swelling,Throat Tightness Medium 01/24/2021 Medications albuterol 90 [...] 2024-2 6 season) 2024 05/13/2021, 07/24/2020, 06/26/2020 Adult Td,Tdap Booster 04/23/2030 04/23/2020 PNEUMOCOCCAL VACCINES [...] EST) SODIUM 140 133 - 146 mmol/L [facility] POTASSIUM 4.2 3.3 - 5.1 mmol/L [facility] CHLORIDE 106 96 - 108 mmol/L [facility] CO2 25 21 - 35 mmol/L [facility] BUN 10 6 - 19 mg/dL [facility] CREATININE 0.60 0.5 - 1.5 mg/dL [facility] GLUCOSE 107(H) 70 - 99 mg/dL [facility] ALBUMIN 4.2 3.9 - 4.8 g/dL [facility] TOTAL PROTEIN 7.1 6.5 - 8.0 g/dL [facility] CALCIUM 9.1 8.4 - 10.3 mg/dL [facility] ALKALINE PHOSPHATASE 96 39 - 117 U/L [facility] TOTAL BILIRUBIN 0.3 0.0 - 1.2 mg/dL [facility] AST 24 0 - 37 U/L [facility] ALT 21 0 - 40 U/L [facility] GLOBULIN 2.9 1 - 4.8 g/dL [facility] EGFR 116 >59 mL/min/1.7 3m2 [facility] Comment:Estimated glomerular filtration rate calculated using the CKD-EPI refit equation. ANION GAP 13 10 - 20 mmol/L [facility] Blood 02/02/2022 10:2 9 AM EST 02/02/2022 10:34 AM EST us Laila Sotelo MD LAB BLOOD BKR ORDERABLES Final Result [address] [id number] from Last 3 Months or Most Recently Relevant to Health Maintenance Insurance [facility] ACO ACO ACO [employer] ACO [place] [address] [place] [address] ACO Care Teams Centrifugal Spinner Relationship Specialty Start Date End Date Cheo Patterson PA [address] [place] [phone] PCP - General 10/23/20 Additional Source Comments The information contained in this document represents components of the legal health record. It is not the complete legal health record.[facility]
== END 2025-03-01 13:04 | disposition home or self-care (01) ==
LOC: HO.HMGCX 13:03
PROVIDERS: PCP Physician Assistant; Visit Provider Obstetrics & Gynecology
DX: N94.10 Unspecified dyspareunia (principal)
CPT/HCPCS: 76830; 76856

== ENCOUNTER → 2025-03-01 13:08 | Outpatient (BNV) | payer BC, SELFPAY | PROVIDERS: PCP Physician Assistant; Visit Provider Radiology Diagnostic Radiology | DX: N94.10 Unspecified dyspareunia (principal) | CPT/HCPCS: 76830; 76856 ==